=== PATIENT | male | born 1965 | race Caucasian/White ===

== ENCOUNTER 2018-04-04 22:48 | Inpatient (IN) ==
[2018-04-05 01:39] LABS: Baso # (Auto) 0.1 th/mm3 (0.0-0.2); Baso % (Auto) 0.7 % (0.0-2.0); Eos # (Auto) 0.6 th/mm3 (0.0-0.4); Eos % (Auto) 4.4 % (0.0-4.0); Hematocrit 50.9 % (39.0-51.0); Hemoglobin 17.5 gm/dL (13.0-17.0); Lymph # (Auto) 2.7 th/mm3 (1.0-4.8); Lymph % (Auto) 20.9 % (9.0-44.0); Mean Corpuscular HGB Conc 34.4 % (32.0-36.0); Mean Corpuscular Hemoglobin 35.6 pg (27.0-34.0); Mean Corpuscular Volume 103.4 fL (80.0-100.0); Mean Platelet Volume 8.5 fL (7.0-11.0); Mono # (Auto) 1.4 th/mm3 (0.0-0.9); Mono % (Auto) 10.6 % (0.0-8.0); Neut # (Auto) 8.1 th/mm3 (1.8-7.7); Neut % (Auto) 63.4 % (16.0-70.0); Platelet Count 191 th/mm3 (150-450); Red Blood Count 4.93 mil/mm3 (4.50-5.90); White Blood Count 12.8 th/mm3 (4.0-11.0)
[2018-04-05 01:49] LABS: Amphetamine Screen,Urine Neg (Neg); Barbiturate Screen,Urine Neg (Neg); Cannabinoid Screen,Urine Neg (Neg); Cocaine Screen,Urine Neg (Neg)
[2018-04-05 01:51] LABS: Opiate Screen,Urine Pos (Neg)
[2018-04-05 01:54] LABS: Alanine Aminotransferase 42 U/L (12-78); Albumin 3.6 g/dL (3.4-5.0); Anion Gap 11 meq/L (5-15); Aspartate Aminotransferase 26 U/L (15-37); Blood Urea Nitrogen 17 mg/dL (7-18); Calcium 8.4 mg/dL (8.5-10.1); Carbon Dioxide 29.3 meq/L (21.0-32.0); Chloride 103 meq/L (98-107); Glomerular Filtration Rate Greater Than 89 mL/min (>89); Glucose,Random 81 mg/dL (74-106); Potassium 3.8 meq/L (3.5-5.1); Sodium 143 meq/L (136-145)
[2018-04-05 02:04] LABS: Alkaline Phosphatase 86 U/L (45-117); Total Protein 7.1 g/dL (6.4-8.2)
--- NOTE | 2018-04-05 03:32 | ED ---
HPI General Chief Complaint: Psychiatric Symptoms Stated Complaint: Flaquito Adams Time Seen by Provider: 04/05/18 00:24 Source: patient Mode of arrival: ambulatory Limitations: no limitations History of Present Illness HPI Narrative: 52-year-old white male presents emergency department under Cespedes act by . Patient was brought in after leaving his [facility]. He had purchased a car and attempted to leave the state. He states that he was traveling to [place] where his mother and father live. Patient was deemed incompetent. The patient denies any suicidal homicidal ideation. He states that he was merely going back to visit his mother. He does not like the facility staying at now. He allegedly has had a history of a traumatic brain injury and chronic neck pain. Patient reports living in an [facility] due to financial reasons. Patient denies any toxic ingestions. He states that his chronic pain is no different than usual. He has not had any recent illnesses. Past medical history: Traumatic brain injury, chronic neck and back pain, depression, peripheral vascular disease, hypercholesterolemia, questionable seizure disorder Surgical history: Negative Social history: No alcohol. No drugs. Positive tobacco. Related Data Home Medications Medication Instructions Recorded Confirmed duloxetine [Cymbalta] 30 mg PO BID 04/04/18 04/04/18 gabapentin 300 mg PO TID 04/04/18 04/04/18 morphine 30 mg PO BID PRN MDD 60 04/04/18 04/04/18 simvastatin [Zocor] 20 mg PO DAILY 04/04/18 04/04/18 zolpidem [Ambien] 5 mg PO HS 04/04/18 04/04/18 Allergies Allergy/AdvReac Type Severity Reaction Status Date / Time No Known Allergies Allergy Verified 04/04/18 23:34 Review of Systems ROS: all other systems reviewed are negative [facility] Medical History Medical History History of herniated intervertebral disc (Acute) Hx of head injury (Acute) Hx of neck injury (Acute) Hypercholesteremia (Acute) Seizure (Acute) Surgical History Surgical History No history of previous surgery (Acute) Social History Social History Substance History: Past History Second Hand Smoke Exposure: Yes Smoking Status: Current every day smoker Tobacco Type: Cigarettes How Often Do You Have a Drink Containing Alcohol: Never Recent Travel in USA within the Last 8 Weeks: No Recent Out of Country Travel within the Last 8 Weeks: No Immunization History Tetanus Immunization: <5 Years Hx Influenza Vaccine This Season: Yes Exam Narrative Exam Narrative: GENERAL: Well-nourished, well-developed patient. SKIN: Warm and dry. HEAD: Normocephalic and atraumatic. EYES: No scleral icterus. No injection or drainage. ENT: No nasal drainage noted. Mucous membranes pink. Airway patent. NECK: Supple, trachea midline. Moves head freely without obvious discomfort. CARDIOVASCULAR: Regular rate and rhythm without murmurs, gallops, or rubs. RESPIRATORY: Breath sounds equal bilaterally. No accessory muscle use. GASTROINTESTINAL: Abdomen soft, non-tender, large abdominal pannus. EXTREMITIES: Patient has chronic venous stasis changes as well as peripheral vascular changes. Lower extremities are thickened and mottled. BACK: Nontender without obvious deformity. No CVA tenderness. NEURO: Patient is alert and oriented. no sensorimotor deficits. Nonfocal. Normal speech. PSYCH: No delusions. No auditory or visual hallucinations. Course Initial Documented Vital Signs Temperature 98.3 F 04/04/18 23:41 Pulse Rate 127 H 04/04/18 23:41 Respiratory Rate 17 04/04/18 23:41 Blood Pressure 126/64 04/04/18 23:41 Pulse Oximetry 96 04/04/18 23:41 Last Documented Vital Signs Temperature 98.3 F 04/04/18 23:41 Pulse Rate 124 H 04/05/18 07:46 Respiratory Rate 18 04/05/18 07:46 Blood Pressure 125/63 04/05/18 07:46 Pulse Oximetry 100 04/05/18 07:46 Medical Decision Making [facility] Narrative Medical decision making narrative: Routine laboratory testing for medical clearance. The patient has been medically cleared. Patient CARE assume by me Dr. Hinojosa at . This is a 52-year-old male who is brought under a Cespedes act last night, this morning's PA has rounded on him found him to be continued tachycardic and performed EKG and discuss with me. His EKG reviewed by me is heart rate of 121 and appears that it is probably 2-1 atrial flutter. Dose of Cardizem has been ordered. We will continue to monitor. Patient no response to first 25 mg bolus of Cardizem, additional boluses been ordered as well as a Cardizem drip. Atrial flutter confirmed on monitor as patient is been intermittently slowing but still maintaining heart rates in the high 120s. Discussed with Dr. Sanches for admission. Medical Screen Exam Complete: Yes Emergency Medical Condition: Yes Differential Diagnosis Differential Diagnosis: MDM: High Differential diagnoses: Schizophrenia, schizoaffective disorder, bipolar, anxiety, depression, adjustment reaction, mood disorder NOS, ODD, depressive disorder NOS, dementia, dementia with agitation, psychosis NOS, substance induced mood disorder, DMDD, Asperger syndrome, infection,electrolyte abnormality, malingering. Mental health screening discussed with the patient. Psychiatric screen ordered. Lab Data Result diagrams: 04/05/18 01:23 04/05/18 01:23 Lab Results 04/05/18 04/05/18 04/05/18 Range/Units 01:23 01:23 01:23 WBC 12.8 H (4.0-11.0) th/mm3 RBC 4.93 (4.50-5.90) mil/mm3 Hgb 17.5 H (13.0-17.0) gm/dL Hct 50.9 (39.0-51.0) % MCV 103.4 H (80.0-100.0) fL MCH 35.6 H (27.0-34.0) pg MCHC 34.4 (32.0-36.0) % RDW 14.0 (11.6-17.2) % Plt Count 191 (150-450) th/mm3 MPV 8.5 (7.0-11.0) fL Neut % (Auto) 63.4 (16.0-70.0) % Lymph % (Auto) 20.9 (9.0-44.0) % Harrison % (Auto) 10.6 H (0.0-8.0) % Eos % (Auto) 4.4 H (0.0-4.0) % Baso % (Auto) 0.7 (0.0-2.0) % Neut # (Auto) 8.1 H (1.8-7.7) th/mm3 Lymph # (Auto) 2.7 (1.0-4.8) th/mm3 Harrison # (Auto) 1.4 H (0.0-0.9) th/mm3 Eos # (Auto) 0.6 H (0.0-0.4) th/mm3 Baso # (Auto) 0.1 (0.0-0.2) th/mm3 WBC Differential . Differential Comment Auto diff final Sodium 143 (136-145) meq/L Potassium 3.8 (3.5-5.1) meq/L Chloride 103 (98-107) meq/L Carbon Dioxide 29.3 (21.0-32.0) meq/L Anion Gap 11 (5-15) meq/L BUN 17 (7-18) mg/dL Creatinine 0.82 (0.60-1.30) mg/dL Estimated GFR Greater than 89 (>89) mL/min Random Glucose 81 (74-106) mg/dL Calcium 8.4 L (8.5-10.1) mg/dL Total Bilirubin 0.4 (0.2-1.0) mg/dL AST 26 (15-37) U/L ALT 42 (12-78) U/L Alkaline Phosphatase 86 (45-117) U/L Troponin I Less than 0.02 L (0.02-0.05) ng/mL B-Natriuretic Peptide (0-100) pg/mL Total Protein 7.1 (6.4-8.2) g/dL Albumin 3.6 (3.4-5.0) g/dL TSH 4.560 H (0.358-3.740) uIU/mL Urine Opiates Screen Pos H (Neg) Ur Barbiturates Screen Neg (Neg) Ur Amphetamines Screen Neg (Neg) U Benzodiazepines Scrn Neg (Neg) Urine Cocaine Screen Neg (Neg) U Cannabinoids Screen Neg (Neg) Serum Alcohol Less than 3 (0-5) mg/dL 04/05/18 Range/Units 07:50 WBC (4.0-11.0) th/mm3 RBC (4.50-5.90) mil/mm3 Hgb (13.0-17.0) gm/dL Hct (39.0-51.0) % MCV (80.0-100.0) fL MCH (27.0-34.0) pg MCHC (32.0-36.0) % RDW (11.6-17.2) % Plt Count (150-450) th/mm3 MPV (7.0-11.0) fL Neut % (Auto) (16.0-70.0) % Lymph % (Auto) (9.0-44.0) % Harrison % (Auto) (0.0-8.0) % Eos % (Auto) (0.0-4.0) % Baso % (Auto) (0.0-2.0) % Neut # (Auto) (1.8-7.7) th/mm3 Lymph # (Auto) (1.0-4.8) th/mm3 Harrison # (Auto) (0.0-0.9) th/mm3 Eos # (Auto) (0.0-0.4) th/mm3 Baso # (Auto) (0.0-0.2) th/mm3 WBC Differential Differential Comment Sodium (136-145) meq/L Potassium (3.5-5.1) meq/L Chloride (98-107) meq/L Carbon Dioxide (21.0-32.0) meq/L Anion Gap (5-15) meq/L BUN (7-18) mg/dL Creatinine (0.60-1.30) mg/dL Estimated GFR (>89) mL/min Random Glucose (74-106) mg/dL Calcium (8.5-10.1) mg/dL Total Bilirubin (0.2-1.0) mg/dL AST (15-37) U/L ALT (12-78) U/L Alkaline Phosphatase (45-117) U/L Troponin I (0.02-0.05) ng/mL B-Natriuretic Peptide 28 (0-100) pg/mL Total Protein (6.4-8.2) g/dL Albumin (3.4-5.0) g/dL TSH (0.358-3.740) uIU/mL Urine Opiates Screen (Neg) Ur Barbiturates Screen (Neg) Ur Amphetamines Screen (Neg) U Benzodiazepines Scrn (Neg) Urine Cocaine Screen (Neg) U Cannabinoids Screen (Neg) Serum Alcohol (0-5) mg/dL Discharge Plan Physicians Team ED Provider: Telly Hinojosa Primary Care Provider: Primary Care Physici,[place] Rxs /Orders / Referrals /Forms Prescriptions: No Action morphine 30 mg Tablet 30 mg PO BID MDD 60 PRN (Reason: Acute Pain) RF: 0 simvastatin [Zocor] 20 mg Tablet 20 mg PO DAILY RF: 0 zolpidem [Ambien] 5 mg Tablet 5 mg PO HS RF: 0 gabapentin 100 mg Capsule 300 mg PO TID RF: 0 duloxetine [Cymbalta] 30 mg Capsule,Delayed Release(Dr/Ec) 30 mg PO BID RF: 0 Discharge Interventions Interventions: Vital Signs Last Done: 04/05/18 07:46 Status ED Status: Admitted Patient
[2018-04-05] MEDS ORDERED: Sod Chloride 0.9% Inj 1,000 ML IV.SIG SCH (06:30)
--- NOTE | 2018-04-05 10:53 | P.HPIM ---
History of Present Illness Service: [facility] Primary Care Physician: No Primary Care Physician Chief Complaint: Atrial flutter, Cespedes act History of Present Illness: Mr. Santos is a 52 yo M with PMH physiatric illness, atrial fibrillation, tobacco abuse, hyperlipidemia who presents to [place] ED via police under Cespedes Act. [ Per EMR review, patient found to be in likely 2-1 atrial flutter while in ED. He was started on Cardizem bolus and drip.] Per patient, he left his assisted living facility due to frustration with one of the other residents and [place] [address]. He does not report any current psychiatric concerns or suicidal ideation. Regarding patient' s atrial fibrillation/flutter, he reports being diagnosed with this previously and that he last saw a [employer] ~5 mo ago. He states he takes unknown medications for this; he has not taken anything for ~3 days since leaving his [facility]. Patient denies any symptoms at this time such as chest pain, shortness of breath , abdominal pain, abnormal urination, or abnormal bowel movements. He reports some fatigue. He also reports some chronic back pain. PMH: Hyperlipidemia, atrial fibrillation, hyperlipidemia, psychiatric disease SH: Prior alcoholism, sober for 16 years. Smoking 2 PPD. FH: Parents live in [place] Home meds: Pain- Neurontin TID, morphine ER-30 mg Lipid- Zocor Neuro/Psych- Tegretol 400mg AM/400mg PM, Cymbalta 30mg AM ASA Ambien at night ? atrial fibrillation medication *Call placed to [facility] to clarify home medications; did not receive call back at this time Inpatient Certification: I certify that the inpatient services were ordered in accordance with Medicare regulations governing the order. This includes certification that hospital inpatient services are reasonable and necessary and in the case of services not specified as inpatient-only under 42 CFR 419.22(n), that they are appropriately provided as inpatient services in accordance to with the 2-midnight benchmark under 43 CFR 412.3(e) Review of Systems All other systems reviewed negative except as stated in HPI Constitutional: Reports fatigue Eyes: Denies blurry vision, Denies dry eyes Ears, Nose, Mouth, and Throat: Denies nasal congestion, Denies sore throat Cardiovascular: Reports irregular heart rhythm, Denies chest pain, Denies shortness of breath with activity Respiratory: Denies change in phlegm color, Denies cough Genitourinary: Denies urinary frequency, Denies urinary incontinence Musculoskeletal: Reports back pain, Reports neck pain (chronic after accident) Skin/Breast: Denies change in skin color, Denies unusual bruising Neurologic: Denies abnormal speech, Denies confusion, Denies loss of vision, Denies tingling/numbness/burning sensations Psychiatric: Denies anxiety, Denies confusion Hematologic/Lymphatic: Denies easy bleeding, Denies easy bruising PMFSH - History History Provided By: Patient - Medical History Medical History: Medical History (Last Updated 04/05/18 @ 15:23 by Vicente Hall MD) Atrial arrhythmia Chronic back pain greater than 3 months duration History of herniated intervertebral disc Hx of head injury Hx of neck injury Hypercholesteremia Psychiatric diagnosis Seizure - Surgical History Surgical History: Surgical History (Last Reviewed 04/05/18 @ 03:31 by JUAN Tsang) No history of previous surgery - Tobacco History Second Hand Smoke Exposure: Yes Tobacco Use In Past 30 Days: Yes Smoking Status: Current every day smoker Tobacco Type: Cigarettes - Alcohol History How Often Do You Have a Drink Containing Alcohol: Never - Substance Use History Substance History: Past History - Substance Use Type Alcohol Status: Sustained Remission Comment: SOBER FOR THE PAST 16 YEARS PER PATIENT - Travel History Recent Travel in the [place] Within the Last 8 Weeks: No Recent Travel Out of the Country Within the Last 8 Weeks: No - Immunization History Tetanus Immunization: <5 Years Hx Influenza Vaccine This Season: Yes Medications and Allergies Active Medications: Active Medications Diltiazem HCl (Cardizem Inj) 25 mg IV.PUSH ONCE PRN PRN Reason: Inadaquate response Last Admin: 04/05/18 10:34 Dose: 25 mg Sodium Chloride (Ns Inj) 1,000 mls @ 0 mls/hr IV.SIG BOLUS JIN Last Infusion: 04/05/18 07:28 Dose: Infused Diltiazem HCl 125 mg/ Sodium (Chloride) 125 mls @ 5 mls/hr IV.CONT TITRATE PRN ; Protocol PRN Reason: Per Protocol Allergies Allergy/AdvReac Type Severity Reaction Status Date / Time No Known Allergies Allergy Verified 04/04/18 23:34 Home Medications Medication Instructions Recorded Confirmed Type duloxetine [Cymbalta] 30 mg PO BID 04/04/18 04/04/18 History gabapentin 300 mg PO TID 04/04/18 04/04/18 History morphine 30 mg PO BID PRN MDD 60 04/04/18 04/04/18 History simvastatin [Zocor] 20 mg PO DAILY 04/04/18 04/04/18 History zolpidem [Ambien] 5 mg PO HS 04/04/18 04/04/18 History B Complex 04/05/18 History ammonium lactate 1 applic TOPICAL DAILY PRN 04/05/18 04/05/18 History aripiprazole 10 mg PO DAILY 04/05/18 04/05/18 History ascorbic acid (vitamin C) [Vitamin 500 mg PO DAILY 04/05/18 04/05/18 History C] carbamazepine 300 mg PO BID 04/05/18 04/05/18 History ceramides 1,3,6-11 [CeraVe] 04/05/18 History docusate sodium 100 mg PO BID PRN 04/05/18 04/05/18 History duloxetine 60 mg PO DAILY 04/05/18 04/05/18 History furosemide 40 mg PO DAILY 04/05/18 04/05/18 History furosemide 80 mg PO DAILY 04/05/18 04/05/18 History gabapentin 100 mg PO TID 04/05/18 04/05/18 History guaifenesin [Mucinex] 600 mg PO Q12H PRN 04/05/18 04/05/18 History haloperidol 5 mg PO Q4HR PRN MDD 2 04/05/18 04/05/18 History ibuprofen 600 mg PO Q6HR PRN 04/05/18 04/05/18 History ketoconazole 1 applic TOPICAL DAILY 04/05/18 04/05/18 History lorazepam 1 mg PO BID 04/05/18 04/05/18 History lorazepam 1 mg PO Q4HR PRN MDD 2 04/05/18 04/05/18 History lurasidone [Latuda] 80 mg PO ,04/05/18 04/05/18 History melatonin 10 mg PO HS 04/05/18 04/05/18 History morphine 20 mg PO Q12H 04/05/18 04/05/18 History [id number]-pzebohuv-gwpseh 1 tab PO DAILY 04/05/18 04/05/18 History [Cerovite Senior] naproxen 500 mg PO BID 04/05/18 04/05/18 History nebivolol [Bystolic] 10 mg PO DAILY 04/05/18 04/05/18 History omega 3-xzu-fvz-fish oil [Fish Oil] 04/05/18 History potassium chloride 10 meq PO DAILY 04/05/18 04/05/18 History potassium chloride 20 meq PO DAILY 04/05/18 04/05/18 History quetiapine 300 mg PO QPM 04/05/18 04/05/18 History simvastatin 40 mg PO QPM 04/05/18 04/05/18 History tramadol 50 mg PO Q6H PRN 04/05/18 04/05/18 History vitamin E 400 unit PO DAILY 04/05/18 04/05/18 History zolpidem 10 mg PO HS 04/05/18 04/05/18 History Exam Vital signs: Vital Signs 04/04/18 23:41 04/05/18 02:27 04/05/18 05:13 Temperature 98.3 F Pulse Rate 127 H 66 Respiratory Rate 17 17 18 Blood Pressure 126/64 117/66 Pulse Oximetry 96 96 04/05/18 06:15 04/05/18 07:00 04/05/18 07:46 Temperature Pulse Rate 126 H 120 H 124 H Respiratory Rate 24 20 18 Blood Pressure 131/73 153/69 H 125/63 Pulse Oximetry 95 95 100 04/05/18 10:00 Temperature Pulse Rate 131 H Respiratory Rate 25 H Blood Pressure 132/82 Pulse Oximetry 96 Intake & Output 04/04/18 04/05/18 04/05/18 18:59 06:59 18:59 Intake Total 1000 / 1000 Balance 1000 / 1000 Intake: IV 1000 / 1000 NS Inj 1,000 ML @ Wide Open IV. 1000 / 1000 SIG BOLUS JIN Rx#:[id number] Narrative: General: No acute distress Skin: No visible lesions CV: tachycardic; no audible murmurs. Grossly normal perfusion Resp: CTAB; normal rate Abdomen: Obese. Nontender to palpation. Normal bowel sounds MSK: Grossly normal ROM and strength Neuro: Grossly normal CN. Grossly normal peripheral motor/sensory function. Patient seemingly alert/oriented Results - Labs CBC & Chem 7: 04/05/18 01:23 04/05/18 01:23 Labs: Short CBC 04/05/18 Range/Units 01:23 WBC 12.8 H (4.0-11.0) th/mm3 Hgb 17.5 H (13.0-17.0) gm/dL Hct 50.9 (39.0-51.0) % Plt Count 191 (150-450) th/mm3 BMP 04/05/18 01:23 Sodium 143 Potassium 3.8 Chloride 103 Carbon Dioxide 29.3 BUN 17 Creatinine 0.82 Calcium 8.4 L Cardiac Enzymes 04/05/18 Range/Units 01:23 Troponin I Less than 0.02 L (0.02-0.05) ng/mL Liver Function 04/05/18 Range/Units 01:23 Total Bilirubin 0.4 (0.2-1.0) mg/dL AST 26 (15-37) U/L ALT 42 (12-78) U/L Alkaline Phosphatase 86 (45-117) U/L Albumin 3.6 (3.4-5.0) g/dL Caprini VTE Risk Assessment Caprini VTE Risk Assessment: Moderate/High Risk (score >= 2) Caprini Risk Assessment Model: Point Value = 1 Point Value = 2 Point Value = 3 Point Value = 5 Age 41-60 Minor surgery BMI > 25 kg/m2 Swollen legs Varicose veins or History of unexplained or recurrent spontaneous Oral contraceptives or hormone replacement Sepsis (< 1 month) Serious lung disease, including pneumonia (< 1 month) Abnormal pulmonary function Acute myocardial infarction Congestive heart failure (< 1 month) History of inflammatory bowel disease Medical patient at bed rest Age 61-74 Arthroscopic surgery Major open surgery (> 45 min) Laparoscopic surgery (> 45 min) Malignancy Confined to bed (> 72 hours) Immobilizing plaster cast Central venous access Age >= 75 History of VTE Family history of VTE Factor V Leiden Prothrombin [id number] Lupus anticoagulant Anticardiolipin antibodies Elevated serum homocysteine Heparin-induced thrombocytopenia Other congenital or acquired thrombophilia Stroke (< 1 month) Elective arthroplasty Hip, pelvis, or leg fracture Acute spinal cord injury (< 1 month) Prophylaxis Regimen: Total Risk Factor Score Risk Level Prophylaxis Regimen 0-1 Low Early ambulation 2 Moderate Order ONE of the following: *Sequential Compression Device (SCD) *Heparin 5000 units SQ BID 3-4 Higher Order ONE of the following medications: *Heparin 5000 units SQ TID *Enoxaparin/Lovenox 40 mg SQ daily (WT < 150 kg, CrCl > 30 mL/min) *Enoxaparin/Lovenox 30 mg SQ daily (WT < 150 kg, CrCl > 10-29 mL/min) *Enoxaparin/Lovenox 30 mg SQ BID (WT < 150 kg, CrCl > 30 mL/min) AND/OR *Sequential Compression Device (SCD) 5 or more Highest Order ONE of the following medications: *Heparin 5000 units SQ TID (Preferred with Epidurals) *Enoxaparin/Lovenox 40 mg SQ daily (WT < 150 kg, CrCl > 30 mL/min) *Enoxaparin/Lovenox 30 mg SQ daily (WT < 150 kg, CrCl > 10-29 mL/min) *Enoxaparin/Lovenox 30 mg SQ BID (WT < 150 kg, CrCl > 30 mL/min) AND *Sequential Compression Device (SCD) Assessment and Plan - Plan Mr. Santos is a 52 yo M with H physiatric illness, atrial fibrillation, tobacco abuse, hyperlipidemia who presented to [place] ED via police under Cespedes Act and found to have atrial arrhythmia suggestive of atrial flutter Atrial arrhythmia Impression: Suspect likely atrial flutter. Patient reports prior Afib and Cardiology evaluation months prior; has not recently been medicated since leaving his [facility] Labs: troponin negative. TSH <5, T4 normal. -Rate control -Continue rate titration with Cardizem drip started in ED -Continue telemetry -Cardiology consulted -Will check echocardiogram -Will give ASA -Will attempt to acquire home medications from [facility] Psychiatric illness/ Cespedes act Impression: Patient seemingly normal mental status and seems aware of situation. Placed under Cespedes act by police after leaving [facility] several days prior -Will await Psych eval -Will continue Cymbalta -Will continue Tegretol -Will give Ativan PRN for anxiety Chronic pain -Will continue home Neurontin, Oramorph while inpatient -E-forcse attempted -Will consult PT while inpatient Tobacco abuse -Nicotine patch offered; patient refused DVT PPX -Lovenox 40mg daily Code Status: Full code
[2018-04-05] MEDS: dilTIAZem Inj 125 MG in Sodium Chlor 0.9% Inj 100 ML IV.CONT PRN ×2 (10:56→19:28)
[2018-04-05] MEDS ORDERED: Acetaminophen 325 MG Tablet PO PRN (11:19)
--- NOTE | 2018-04-05 13:49 | XR ---
EXAM DATE: 04/05/2018 1:34 PM EDT AGE/SEX: 52 years / Male INDICATIONS: . Chest pain. CLINICAL DATA: This is the patient's initial encounter. Patient reports that signs and symptoms have been present for 1 day and indicates a pain score of 4/10. MEDICAL/SURGICAL HISTORY: Seizures. Smoker. A-fib. None. COMPARISON: No prior exams available for comparison. FINDINGS: Linear scarring or atelectasis in the lingula. Osseous structures are intact. Cardiomegaly. Right elvira g clear. CONCLUSION: Lingular atelectasis versus scarring. Electronically signed by: Dimitri Riggs MD 04/05/2018 1:48 PM EDT
[2018-04-05] MEDS: Gabapentin 300 MG Capsule PO SCH ×2 (14:07→19:36)
[2018-04-05] MEDS: Enoxaparin Inj 40 MG/0.4 ML Syringe SQ SCH (14:07)
[2018-04-05] MEDS ORDERED: LORazepam 1 MG Tablet PO PRN (15:50)
--- NOTE | 2018-04-05 16:07 | ECG ---
Date Performed: 04/05/2018 Time Performed: 07:21:30 PTAGE: 52 years EKG: SUPRAVENTRICULAR TACHYCARDIA WITH VENTRICULAR RATE OF 121, THIS IS MOST LIKELY ATRIAL FLUTT ER WITH 2:1 AV CONDUCTION VERSUS SOME OTHER ECTOPIC SUPRAVENTRICULAR TACHYCARDIA. LOW LIMB LEAD VOLTA GE INDETERMINATE AXIS CLINICAL CORRELATION AND FOLLOW UP TRACINGS RECOMMENDED. ABNORMAL ECG NO PREVIOUS TRACING DOCTOR: Michele Cox Interpretating Date/Time 04/05/2018 16:21:17
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
--- NOTE | 2018-04-05 18:45 | MB ---
cc: Sly Felix DO DATE: 04/05/2018 REASON FOR CONSULTATION: Atrial flutter. HISTORY OF PRESENT ILLNESS: Gregory Santos is a 52-year-old male who is in an assisted living facility in [place]. He left due to frustration with another resident and apparently bought a car and drove across the [place]. [place] was [place] [address]. He was brought in as a Cespedes act. On arrival, he was found to be in atrial flutter with a rapid ventricular response and started on a Cardizem drip. The patient has a log brander back in [place], who he saw 4-5 months ago. He has a known history of atrial fibrillation. Since he left the assisted living facility around 3 days ago, he has not taken any of his medications. In seeing him, he is hemodynamically stable without chest pain or shortness of breath. PAST MEDICAL HISTORY: 1. Atrial fibrillation. 2. Herniated intervertebral disk. 3. History of head and neck injury. 4. Hyperlipidemia. 5. Seizures. PAST SURGICAL HISTORY: Dictation Ends Here. Sly Felix DO VGP/rm , 03:05 PM , 03:10 PM
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
[2018-04-05] MEDS: Haloperidol Lactate Oral Conc 10 MG/5 ML UDC PO SCH (20:50)
[2018-04-05] MEDS: carBAMazepine 200 MG Tablet PO SCH (20:54)
[2018-04-05] MEDS ORDERED: Zolpidem Tartrate 5 MG Tablet PO SCH (21:00)
[2018-04-05] MEDS: Haloperidol Inj 5 MG/ML Ampul IM SCH (22:17)
[2018-04-05] MEDS: Senna/Docusate Sodium 8.6/50 MG Tablet PO SCH (22:17)
[2018-04-06 04:19] LABS: Baso % (Auto) 0.4 % (0.0-2.0); Eos # (Auto) 0.6 th/mm3 (0.0-0.4); Hematocrit 50.3 % (39.0-51.0); Hemoglobin 17.4 gm/dL (13.0-17.0); Lymph # (Auto) 2.2 th/mm3 (1.0-4.8); Lymph % (Auto) 19.1 % (9.0-44.0); Mean Corpuscular HGB Conc 34.6 % (32.0-36.0); Mean Corpuscular Hemoglobin 35.7 pg (27.0-34.0); Mean Corpuscular Volume 103.1 fL (80.0-100.0); Mean Platelet Volume 8.1 fL (7.0-11.0); Mono # (Auto) 1.3 th/mm3 (0.0-0.9); Mono % (Auto) 11.6 % (0.0-8.0); Neut # (Auto) 7.2 th/mm3 (1.8-7.7); Neut % (Auto) 63.9 % (16.0-70.0); Platelet Count 179 th/mm3 (150-450); Red Blood Count 4.88 mil/mm3 (4.50-5.90); Red Cell Distribution Width 14.4 % (11.6-17.2); White Blood Count 11.3 th/mm3 (4.0-11.0)
[2018-04-06 04:39] LABS: Anion Gap 5 meq/L (5-15); Blood Urea Nitrogen 10 mg/dL (7-18); Calcium 8.3 mg/dL (8.5-10.1); Carbon Dioxide 29.1 meq/L (21.0-32.0); Chloride 107 meq/L (98-107); Glomerular Filtration Rate Greater Than 89 mL/min (>89); Glucose,Random 94 mg/dL (74-106); Potassium 3.7 meq/L (3.5-5.1); Sodium 141 meq/L (136-145)
[2018-04-06 04:40] LABS: Cholesterol 198 mg/dL (120-200); Triglycerides 421 mg/dL (42-150)
[2018-04-06 04:42] LABS: Chol/HDL Ratio 5.54 Ratio; HDL Cholesterol 35.7 mg/dL (40.0-60.0)
[2018-04-06] MEDS: carBAMazepine 200 MG Tablet PO SCH ×2 (09:23→20:33)
[2018-04-06] MEDS: Senna/Docusate Sodium 8.6/50 MG Tablet PO SCH (09:23)
[2018-04-06] MEDS: Haloperidol Lactate Oral Conc 10 MG/5 ML UDC PO SCH ×2 (09:24→20:32)
[2018-04-06] MEDS: Gabapentin 300 MG Capsule PO SCH ×3 (09:24→17:52)
[2018-04-06] MEDS: Haloperidol Inj 5 MG/ML Ampul IM SCH ×2 (09:25→20:33)
--- NOTE | 2018-04-06 11:23 | P.PN ---
Subjective Interval history: Follow-up atrial flutter with RVR/acute psychotic mood disorder April 06, 2018-patient seen and examined, currently on Cardizem drip. Alert and oriented 3. Denies any chest pain or shortness of breath. Physical Exam Vital signs: Vital Signs 04/05/18 12:00 04/05/18 13:00 04/05/18 14:00 Temperature 97.6 F Pulse Rate 114 H 90 120 H Respiratory Rate 18 Blood Pressure 152/87 H Pulse Oximetry 96 04/05/18 15:00 04/05/18 17:00 04/05/18 19:00 Temperature Pulse Rate 128 H 130 H 110 H Respiratory Rate Blood Pressure Pulse Oximetry 04/05/18 20:00 04/05/18 21:00 04/05/18 22:00 Temperature 98.4 F Pulse Rate 125 H 118 H 94 H Respiratory Rate 20 Blood Pressure 160/91 H Pulse Oximetry 96 04/05/18 23:00 04/06/18 00:00 04/06/18 01:00 Temperature Pulse Rate 141 H 78 86 Respiratory Rate 20 Blood Pressure 138/77 Pulse Oximetry 95 04/06/18 02:00 04/06/18 03:00 04/06/18 04:00 Temperature Pulse Rate 84 114 H 130 H Respiratory Rate 20 Blood Pressure 115/80 Pulse Oximetry 94 L 04/06/18 05:00 04/06/18 06:00 04/06/18 07:00 Temperature Pulse Rate 88 86 131 H Respiratory Rate Blood Pressure Pulse Oximetry 04/06/18 08:00 04/06/18 09:00 04/06/18 09:03 Temperature 97.9 F Pulse Rate 131 H 116 H Respiratory Rate 20 Blood Pressure 141/67 H Pulse Oximetry 98 97 04/06/18 10:00 Temperature Pulse Rate 121 H Respiratory Rate Blood Pressure Pulse Oximetry Intake & Output 04/05/18 04/06/18 04/06/18 18:59 06:59 18:59 Intake Total 1000 / 1000 555 / 555 Output Total 750 / 750 Balance 1000 / 1000 -195 / -195 Weight 139.5 kg Intake: IV 1000 / 1000 75 / 75 Cardizem Inj 125 MG In NS Inj 75 / 75 100 ML @ 5 MG/HR 5 mls/hr IV. CONT TITRATE PRN Rx#:[id number] NS Inj 1,000 ML @ Wide Open IV. 1000 / 1000 SIG BOLUS JIN Rx#:[id number] Oral 480 / 480 Output: Urine 750 / 750 Other: Date of Last Bowel Movement 04/05/18 04/06/18 # Bowel Movements 1 Weight On Admission 139.5 kg Narrative: GENERAL: NAD SKIN: Warm and dry. HEAD: Normocephalic. EYES: No scleral icterus. No injection or drainage. NECK: Supple, trachea midline. No JVD or lymphadenopathy. CARDIOVASCULAR: Irregular regular rate and rhythm without murmurs, gallops, or rubs. RESPIRATORY: Breath sounds equal bilaterally. No accessory muscle use. GASTROINTESTINAL: Abdomen soft, non-tender, nondistended. MUSCULOSKELETAL: No cyanosis, or edema. BACK: Nontender without obvious deformity. No CVA tenderness. Results - Labs CBC & Chem 7: 04/06/18 03:52 04/06/18 03:52 Laboratory Results - last 24 hr 04/05/18 04/06/18 04/06/18 01:23 03:52 03:52 WBC 11.3 H RBC 4.88 Hgb 17.4 H Hct 50.3 MCV 103.1 H MCH 35.7 H MCHC 34.6 RDW 14.4 Plt Count 179 MPV 8.1 Neut % (Auto) 63.9 Lymph % (Auto) 19.1 [place] % (Auto) 11.6 H Eos % (Auto) 5.0 H Baso % (Auto) 0.4 Neut # (Auto) 7.2 Lymph # (Auto) 2.2 [place] # (Auto) 1.3 H Eos # (Auto) 0.6 H Baso # (Auto) 0.0 WBC Differential . Differential Comment Auto diff final Sodium 141 Potassium 3.7 Chloride 107 Carbon Dioxide 29.1 Anion Gap 5 BUN 10 Creatinine 0.62 Estimated GFR Greater than 89 Random Glucose 94 Calcium 8.3 L Triglycerides 421 H Cholesterol 198 LDL Cholesterol, Calc HDL Cholesterol 35.7 L Cholesterol/HDL Ratio 5.54 Thyroxine (T4) 6.8 - Imaging Impressions Chest X-Ray 04/05/18 00:00 CONCLUSION: Lingular atelectasis versus scarring. Assessment and Plan - Plan 52-year-old man with Atrial flutter with RVR History of A. fib Currently on Cardizem drip Continue with aspirin 2D echo pending Appreciate input from cardiology Tobacco abuse Tobacco counseling cessation provided Mood/psychotic disorder Currently Rubina acted Appreciate input from psychiatry Chronic pain continue home Neurontin, Oramorph while inpatient PT to treat and eval DVT PPX -Lovenox 40mg daily
--- NOTE | 2018-04-06 11:44 | P.PNCA ---
Subjective Interval history: Aflutter with RVR most of the night Did have one long pause, asymptomatic Currently off the Cardizem drip Physical Exam Vital signs: Vital Signs 04/05/18 12:00 04/05/18 13:00 04/05/18 14:00 Temperature 97.6 F Pulse Rate 114 H 90 120 H Respiratory Rate 18 Blood Pressure 152/87 H Pulse Oximetry 96 04/05/18 15:00 04/05/18 17:00 04/05/18 19:00 Temperature Pulse Rate 128 H 130 H 110 H Respiratory Rate Blood Pressure Pulse Oximetry 04/05/18 20:00 04/05/18 21:00 04/05/18 22:00 Temperature 98.4 F Pulse Rate 125 H 118 H 94 H Respiratory Rate 20 Blood Pressure 160/91 H Pulse Oximetry 96 04/05/18 23:00 04/06/18 00:00 04/06/18 01:00 Temperature Pulse Rate 141 H 78 86 Respiratory Rate 20 Blood Pressure 138/77 Pulse Oximetry 95 04/06/18 02:00 04/06/18 03:00 04/06/18 04:00 Temperature Pulse Rate 84 114 H 130 H Respiratory Rate 20 Blood Pressure 115/80 Pulse Oximetry 94 L 04/06/18 05:00 04/06/18 06:00 04/06/18 07:00 Temperature Pulse Rate 88 86 131 H Respiratory Rate Blood Pressure Pulse Oximetry 04/06/18 08:00 04/06/18 09:00 04/06/18 09:03 Temperature 97.9 F Pulse Rate 131 H 116 H Respiratory Rate 20 Blood Pressure 141/67 H Pulse Oximetry 98 97 04/06/18 10:00 04/06/18 11:00 Temperature Pulse Rate 121 H 138 H Respiratory Rate Blood Pressure Pulse Oximetry Intake & Output 04/05/18 04/06/18 04/06/18 18:59 06:59 18:59 Intake Total 1000 / 1000 555 / 555 Output Total 750 / 750 Balance 1000 / 1000 -195 / -195 Weight 139.5 kg Intake: IV 1000 / 1000 75 / 75 Cardizem Inj 125 MG In NS Inj 75 / 75 100 ML @ 5 MG/HR 5 mls/hr IV. CONT TITRATE PRN Rx#:[id number] NS Inj 1,000 ML @ Wide Open IV. 1000 / 1000 SIG BOLUS JIN Rx#:[id number] Oral 480 / 480 Output: Urine 750 / 750 Other: Date of Last Bowel Movement 04/05/18 04/06/18 # Bowel Movements 1 Weight On Admission 139.5 kg Narrative: GENERAL: NAD SKIN: Warm and dry. HEAD: Normocephalic. EYES: No scleral icterus. No injection or drainage. NECK: Supple, trachea midline. No JVD or lymphadenopathy. CARDIOVASCULAR: Irregular regular rate and rhythm without murmurs, gallops, or rubs. RESPIRATORY: Breath sounds equal bilaterally. No accessory muscle use. GASTROINTESTINAL: Abdomen soft, non-tender, nondistended. MUSCULOSKELETAL: No cyanosis, or edema. BACK: Nontender without obvious deformity. No CVA tenderness. Assessment and Plan - Assessment (1) Atrial flutter with rapid ventricular response Code(s): I48.92 - Unspecified atrial flutter Status: Acute (2) TBI (traumatic brain injury) Code(s): S06.9X9A - Unspecified intracranial injury with loss of consciousness of unspecified duration, initial encounter Status: Acute - Plan 1) Aflutter CHADSVASc = 0, con't on ASA 81mg daily Did have a long pause overnight on the Cardizem drip Will attempt to start Cardizem PO and see how he does May need BETINA with CV, but would need to take anti-coagulation for 4-6 weeks which might not be the best idea Would attempt to avoid PPM unless absolutely necessary 2) Cespedes Act 3) 2D echo pending
[2018-04-06] MEDS: Enoxaparin Inj 40 MG/0.4 ML Syringe SQ SCH (14:02)
[2018-04-06] MEDS: Morphine Sulfate 30 MG IR Tablet PO PRN (14:05)
[2018-04-07] MEDS: Gabapentin 300 MG Capsule PO SCH ×3 (08:12→17:25)
[2018-04-07] MEDS: carBAMazepine 200 MG Tablet PO SCH ×2 (08:12→21:42)
[2018-04-07] MEDS: Haloperidol Lactate Oral Conc 10 MG/5 ML UDC PO SCH ×2 (08:13→21:42)
[2018-04-07] MEDS: Haloperidol Inj 5 MG/ML Ampul IM SCH ×2 (08:13→21:42)
[2018-04-07] MEDS: Morphine Sulfate 30 MG IR Tablet PO PRN (08:16)
--- NOTE | 2018-04-07 10:47 | P.PN ---
Subjective Interval history: Follow-up atrial flutter with RVR/acute psychotic mood disorder April 06, 2018-patient seen and examined, currently on Cardizem drip. Alert and oriented 3. Denies any chest pain or shortness of breath. April 15, 2018-patient seen and examined, still in RVR, denies any shortness of breath or chest pain. Physical Exam Vital signs: Vital Signs 04/06/18 11:00 04/06/18 12:00 04/06/18 13:00 Temperature 98.0 F Pulse Rate 138 H 131 H 107 H Respiratory Rate 20 Blood Pressure 131/79 Pulse Oximetry 94 L 04/06/18 14:00 04/06/18 15:00 04/06/18 16:00 Temperature 98.0 F Pulse Rate 102 H 131 H 125 H Respiratory Rate 20 Blood Pressure 132/59 L Pulse Oximetry 94 L 04/06/18 17:00 04/06/18 18:00 04/06/18 19:00 Temperature Pulse Rate 132 H 116 H 98 H Respiratory Rate Blood Pressure Pulse Oximetry 04/06/18 20:00 04/06/18 21:00 04/06/18 22:00 Temperature 98.7 F Pulse Rate 134 H 92 H 92 H Respiratory Rate 18 Blood Pressure 145/105 H Pulse Oximetry 100 04/06/18 23:00 04/07/18 00:00 04/07/18 01:00 Temperature 98.1 F Pulse Rate 90 88 102 H Respiratory Rate 18 Blood Pressure 142/77 H Pulse Oximetry 99 04/07/18 02:00 04/07/18 03:00 04/07/18 04:00 Temperature 97.9 F Pulse Rate 105 H 114 H 113 H Respiratory Rate 18 Blood Pressure 120/71 Pulse Oximetry 100 04/07/18 05:00 04/07/18 06:00 04/07/18 07:00 Temperature Pulse Rate 114 H 116 H 107 H Respiratory Rate Blood Pressure Pulse Oximetry 04/07/18 08:00 04/07/18 09:00 04/07/18 10:00 Temperature 97.9 F Pulse Rate 126 H 130 H 116 H Respiratory Rate 20 Blood Pressure 137/92 H Pulse Oximetry 99 Intake & Output 04/06/18 04/07/18 04/07/18 18:59 06:59 18:59 Intake Total 640 / 640 480 / 480 Output Total 650 / 650 200 / 200 Balance -10 / -10 280 / 280 Weight 139 kg Intake: Oral 640 / 640 480 / 480 Output: Urine 650 / 650 200 / 200 Other: # Voids 2 3 Date of Last Bowel Movement 04/06/18 04/07/18 04/07/18 # Bowel Movements 1 Narrative: GENERAL: NAD SKIN: Warm and dry.+rash to bilateral armpits HEAD: Normocephalic. EYES: No scleral icterus. No injection or drainage. NECK: Supple, trachea midline. No JVD or lymphadenopathy. CARDIOVASCULAR: Irregular regular rate and rhythm without murmurs, gallops, or rubs. RESPIRATORY: Breath sounds equal bilaterally. No accessory muscle use. GASTROINTESTINAL: Abdomen soft, non-tender, nondistended. MUSCULOSKELETAL: No cyanosis, or edema. BACK: Nontender without obvious deformity. No CVA tenderness. Results - Labs CBC & Chem 7: 04/06/18 03:52 04/06/18 03:52 Assessment and Plan - Plan 52-year-old man with Atrial flutter with RVR History of A. fib Currently on Cardizem drip; Bystolic on hold Continue with aspirin 2D echo pending Appreciate input from cardiology Tobacco abuse Tobacco counseling cessation provided Mood/psychotic disorder Currently Rubina mathews Appreciate input from psychiatry Resume Abilify Chronic pain continue home Neurontin, Oramorph while inpatient PT to treat and eval History of CHF Resume Lasix DVT PPX -Lovenox 40mg daily
--- NOTE | 2018-04-07 11:04 | ECHRPT ---
Indication: ATRIAL FIB CONCLUSIONS The left ventricular systolic function is hyperdynamic with an estimated ejection fraction in the ra nge of 65- 70%. Normal left ventricular size. Moderate concentric left ventricular hypertrophy. No regional wall motion abnormalities are present. Aortic valve sclerosis is present. BP: / HR: Rhythm: Atrial fibrillation MEASUREMENTS (Male / Female) Normal Values Technical Quality:Fair 2D ECHO LV Diastolic Diameter PLAX 4.7 cm 4.2 - 5.9 / 3.9 - 5.3 cm LV Systolic Diameter PLAX 3.2 cm IVS Diastolic Thickness 1.5 cm 0.6 - 1.0 / 0.6 - 0.9 cm LVPW Diastolic Thickness 1.6 cm 0.6 - 1.0 / 0.6 - 0.9 cm LV Relative Wall Thickness 0.7 LVOT Diameter 1.9 cm M-MODE Aortic Root Diameter MM 2.3 cm LA Systolic Diameter MM 3.6 cm LA Ao Ratio MM 1.6 AV Cusp Separation MM 2.0 cm DOPPLER AV Peak Velocity 124.0 cm/s AV Peak Gradient 6.2 mmHg LVOT Peak Velocity 97.2 cm/s LVOT Peak Gradient 3.8 mmHg AV Area Cont Eq pk 2.2 cm MV Area PHT 5.4 cm LV E' Lateral Velocity 10.4 cm/s LV E' Septal Velocity 9.5 cm/s PV Peak Velocity 80.1 cm/s PV Peak Gradient 2.6 mmHg FINDINGS LEFT VENTRICLE The left ventricular systolic function is hyperdynamic with an estimated ejection fraction in the ra nge of 65- 70%. Normal left ventricular size. Moderate concentric left ventricular hypertrophy. No regional wall motion abnormalities are present. RIGHT VENTRICLE Normal right ventricular size and systolic function. LEFT ATRIUM The left atrial size is normal. RIGHT ATRIUM The right atrial size is normal. ATRIAL SEPTUM Normal atrial septal thickness without atrial level shunting by limited color doppler interrogation. AORTA The aortic root and proximal ascending aorta are normal in size on limited imaging. MITRAL VALVE Structurally normal mitral valve. No mitral valve stenosis or regurgitation. AORTIC VALVE Trileaflet aortic valve. Aortic valve sclerosis is present. TRICUSPID VALVE Structurally normal tricuspid valve. No tricuspid valve stenosis or regurgitation. PULMONARY VALVE The pulmonary valve is not well visualized. VESSELS The inferior vena cava is normal in size. PERICARDIUM No pericardial effusion. Kong Wu MD, FACC (Electronically Signed) Final Date:07 April 2018 11:03
[2018-04-07] MEDS ORDERED: carBAMazepine 200 MG Tablet PO SCH (11:30)
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
[2018-04-07] MEDS: Enoxaparin Inj 40 MG/0.4 ML Syringe SQ SCH (13:22)
--- NOTE | 2018-04-07 13:22 | P.PNPSY ---
Subjective Remarks: I have seen this patient today for psychiatric reevaluation. EMR reviewed. The case was discussed with Gaurav, porter sample case at residential facility. Case also discussed with nursing charge. On my psychiatric evaluation the patient is calm, cooperative and pleasant. The patient reports that he is having a procedure this afternoon to avoid his A. fib. The patient reports good mood, denies anxiety, denies anhedonia, denies hopelessness, denies helplessness, he denies suicidal and was ideation, denies visual and auditory hallucinations. The patient is concrete, but logical and coherent. Compliant with his medications, no significant side effects. Oriented 3. Mental Status Examination Appearance: Appropriate Consciousness: Alert Orientation: x4 Motor Activity: Normal gait Speech: Pressured, Rapid, Stuttering Language: Perseveration Fund of Knowledge: Poor Attention and Concentration: Easily distracted Memory: Impaired Mood: Appropriate Affect: Irritable Thought Process & Associations: Intact Thought Content: Appropriate, Obsessions Hallucination Type: None Delusion Type: None Suicidal Ideation: No Suicidal Plan: No Suicidal Intention: No Homicidal Ideation: No Homicidal Plan: No Homicidal Intention: No Insight: Fair Judgment: Impulsive Assessment and Plan - Assessment (1) TBI (traumatic brain injury) Code(s): S06.9X9A - Unspecified intracranial injury with loss of consciousness of unspecified duration, initial encounter Status: Acute - Plan Plan: Patient mentation seems to be improved since he was seen last time by Dr. Bardales. He seems to be at baseline, this information was confirmed by porter sample case. However, there is a patient with was no mood swings, he has been kind of disorganized during this hospitalization, requesting to be discharged AMA. For this reason I am going to keep the Cespedes act in place and I will reevaluate the case once the ablation is done. Continue current psychotropic regimen. Justification for Continued Inpatient Stay: No admission in psychiatry is indicated at the moment. Request Healthcare Surrogate/Guardian Advocate?: Yes
[2018-04-07] MEDS: ARIPiprazole 10 MG Tablet PO SCH (14:00)
--- NOTE | 2018-04-07 17:49 | P.PNCA ---
Subjective Interval history: No events overnight Multiple pauses overnight Most likely due to meds with sleep apnea, but the other side is that can't increase meds Physical Exam Vital signs: Vital Signs 04/06/18 18:00 04/06/18 19:00 04/06/18 20:00 Temperature 98.7 F Pulse Rate 116 H 98 H 134 H Respiratory Rate 18 Blood Pressure 145/105 H Pulse Oximetry 100 04/06/18 21:00 04/06/18 22:00 04/06/18 23:00 Temperature Pulse Rate 92 H 92 H 90 Respiratory Rate Blood Pressure Pulse Oximetry 04/07/18 00:00 04/07/18 01:00 04/07/18 02:00 Temperature 98.1 F Pulse Rate 88 102 H 105 H Respiratory Rate 18 Blood Pressure 142/77 H Pulse Oximetry 99 04/07/18 03:00 04/07/18 04:00 04/07/18 05:00 Temperature 97.9 F Pulse Rate 114 H 113 H 114 H Respiratory Rate 18 Blood Pressure 120/71 Pulse Oximetry 100 04/07/18 06:00 04/07/18 07:00 04/07/18 08:00 Temperature 97.9 F Pulse Rate 116 H 107 H 126 H Respiratory Rate 20 Blood Pressure 137/92 H Pulse Oximetry 99 04/07/18 09:00 04/07/18 10:00 04/07/18 11:00 Temperature Pulse Rate 130 H 116 H 133 H Respiratory Rate Blood Pressure Pulse Oximetry 04/07/18 11:36 04/07/18 12:00 04/07/18 13:00 Temperature 97.9 F Pulse Rate 109 H 119 H Respiratory Rate 20 Blood Pressure 131/71 Pulse Oximetry 98 100 04/07/18 14:00 04/07/18 15:00 04/07/18 16:00 Temperature 97.8 F Pulse Rate 130 H 94 H 113 H Respiratory Rate 20 Blood Pressure 132/72 Pulse Oximetry 99 04/07/18 17:00 Temperature Pulse Rate 102 H Respiratory Rate Blood Pressure Pulse Oximetry Intake & Output 04/06/18 04/07/18 04/07/18 18:59 06:59 18:59 Intake Total 640 / 640 480 / 480 960 / 960 Output Total 650 / 650 200 / 200 Balance -10 / -10 280 / 280 960 / 960 Weight 139 kg Intake: Oral 640 / 640 480 / 480 960 / 960 Output: Urine 650 / 650 200 / 200 Other: # Voids 2 3 4 Date of Last Bowel Movement 04/06/18 04/07/18 04/07/18 # Bowel Movements 1 1 Narrative: GENERAL: NAD SKIN: Warm and dry.+rash to bilateral armpits HEAD: Normocephalic. EYES: No scleral icterus. No injection or drainage. NECK: Supple, trachea midline. No JVD or lymphadenopathy. CARDIOVASCULAR: Irregular regular rate and rhythm without murmurs, gallops, or rubs. RESPIRATORY: Breath sounds equal bilaterally. No accessory muscle use. GASTROINTESTINAL: Abdomen soft, non-tender, nondistended. MUSCULOSKELETAL: No cyanosis, or edema. BACK: Nontender without obvious deformity. No CVA tenderness. Assessment and Plan - Assessment (1) Atrial flutter with rapid ventricular response Code(s): I48.92 - Unspecified atrial flutter Status: Acute (2) TBI (traumatic brain injury) Code(s): S06.9X9A - Unspecified intracranial injury with loss of consciousness of unspecified duration, initial encounter Status: Acute - Plan 1) Aflutter Did have a long pause overnight on the Cardizem drip, multiple other pauses Unable to increase Cardizem Have Dr. Liang see for consideration of ablation Would attempt to avoid PPM unless absolutely necessary 2) Cespedes Act 3) EF 65%
[2018-04-07] MEDS: LORazepam 1 MG Tablet PO SCH (21:42)
[2018-04-08] MEDS: Haloperidol Lactate Oral Conc 10 MG/5 ML UDC PO SCH ×2 (08:54→22:36)
[2018-04-08] MEDS: Gabapentin 300 MG Capsule PO SCH ×3 (08:54→17:20)
[2018-04-08] MEDS: Furosemide 40 MG Tablet PO SCH (08:54)
[2018-04-08] MEDS: Morphine Sulfate 30 MG IR Tablet PO PRN (08:54)
[2018-04-08] MEDS: carBAMazepine 200 MG Tablet PO SCH ×2 (08:55→22:35)
[2018-04-08] MEDS: ARIPiprazole 10 MG Tablet PO SCH (08:55)
[2018-04-08] MEDS: LORazepam 1 MG Tablet PO SCH ×2 (08:55→22:35)
[2018-04-08] MEDS: Haloperidol Inj 5 MG/ML Ampul IM SCH (08:57)
[2018-04-08] MEDS: Enoxaparin Inj 40 MG/0.4 ML Syringe SQ SCH (11:01)
--- NOTE | 2018-04-08 11:02 | P.PN ---
Subjective Interval history: awake and alert per patient history of TBI in the past and takes Tegretol and cymbalta telemetry- still in flutter rhythm Physical Exam Vital signs: Vital Signs 04/07/18 11:36 04/07/18 12:00 04/07/18 13:00 Temperature 97.9 F Pulse Rate 109 H 119 H Respiratory Rate 20 Blood Pressure 131/71 Pulse Oximetry 98 100 04/07/18 14:00 04/07/18 15:00 04/07/18 16:00 Temperature 97.8 F Pulse Rate 130 H 94 H 113 H Respiratory Rate 20 Blood Pressure 132/72 Pulse Oximetry 99 04/07/18 17:00 04/07/18 18:00 04/07/18 20:00 Temperature 97.8 F Pulse Rate 102 H 122 H 114 H Respiratory Rate 18 Blood Pressure 140/73 Pulse Oximetry 94 L 04/07/18 21:00 04/07/18 21:20 04/07/18 22:00 Temperature Pulse Rate 104 H 118 H Respiratory Rate Blood Pressure Pulse Oximetry 98 04/07/18 23:00 04/08/18 00:00 04/08/18 01:00 Temperature 97.5 F L Pulse Rate 108 H 116 H 118 H Respiratory Rate 18 16 Blood Pressure 144/80 H Pulse Oximetry 97 04/08/18 02:00 04/08/18 03:00 04/08/18 04:00 Temperature 98.2 F Pulse Rate 120 H 101 H 98 H Respiratory Rate 18 Blood Pressure 129/84 Pulse Oximetry 94 L 04/08/18 05:00 04/08/18 06:00 04/08/18 07:00 Temperature Pulse Rate 122 H 118 H 120 H Respiratory Rate Blood Pressure Pulse Oximetry 04/08/18 08:00 04/08/18 09:00 04/08/18 10:00 Temperature 97.7 F Pulse Rate 120 H 131 H 130 H Respiratory Rate 16 Blood Pressure 176/103 H Pulse Oximetry 97 04/08/18 10:17 Temperature Pulse Rate Respiratory Rate Blood Pressure Pulse Oximetry 97 Intake & Output 04/07/18 04/08/18 04/08/18 18:59 06:59 18:59 Intake Total 960 / 960 480 / 480 Balance 960 / 960 480 / 480 Weight 138.5 kg Intake: Oral 960 / 960 480 / 480 Other: # Voids 4 3 Date of Last Bowel Movement 04/07/18 04/07/18 04/07/18 # Bowel Movements 1 Narrative: awake and alert, no acute ditress, speech slow but clear anciteric neck supple lungs- no rales irrgularly irregular rhythm abdomen soft, notnender extremiteis no edema neuro exam- non focal Results - Labs CBC & Chem 7: 04/06/18 03:52 04/06/18 03:52 Assessment and Plan - Plan 52-year-old man with Atrial flutter with RVR History of A. fib Currently on Cardizem drip; Bystolic on hold Continue with aspirin 2D echo unremarkable Appreciate input from cardiology- plan for ablation today HYpertension- elevated BP readings start on Amlodipine 5 mg daily Tobacco abuse Tobacco counseling cessation provided Mood/psychotic disorder Currently Rubina acted Appreciate input from psychiatry Resume Rl. Tegretol and cymbalta Chronic pain continue home Neurontin, Oramorph while inpatient PT to treat and eval History of CHF Resume Lasix DVT PPX -Lovenox 40mg daily
[2018-04-08] MEDS: amLODIPine 5 MG Tablet PO SCH (11:49)
[2018-04-08] MEDS ORDERED: Sodium Chlor 0.9% Inj 500 ML IV.SIG ONE (15:58)
[2018-04-08] MEDS ORDERED: Succinylcholine Inj 200 MG/10 ML Vial IV.PUSH ONE (15:58)
[2018-04-08] MEDS ORDERED: Phenylephrine/NS 1000 MCG/10ML Syringe IV.PUSH ONE (15:58)
[2018-04-08] MEDS ORDERED: Lidocaine PF 1% Inj 5 ML Syringe INFILTRATN ONE (15:58)
[2018-04-08] MEDS ORDERED: Heparin/NS PF Inj 500 ML ONE (16:06)
[2018-04-08] MEDS ORDERED: Isoproterenol HCl Inj 0.2 MG/ML Ampul ONE (16:09)
[2018-04-08] MEDS ORDERED: Heparin 10,000 UNITS/10 ML Vial (for IV use) ONE (16:09)
[2018-04-08] MEDS ORDERED: Sodium Chlor 0.9% Inj 250 ML ONE (16:55)
[2018-04-08] MEDS ORDERED: fentaNYL Citrate Inj 100 MCG/2 ML Ampul ONE (17:16)
--- NOTE | 2018-04-08 17:31 | ECHRPT ---
Indication: A FIB FLUTTER CONCLUSIONS No clot seen in left atrium nor left atrial appendage Adfequate left venticular systolic function BP: / HR: Rhythm: Technical Quality: Medications Sedation was administered Complications There were no complications prior to, during or in recovery from the transesophag eal echocardiogram.. Proc. Components FINDINGS LEFT VENTRICLE Normal left ventricular size and wall thickness. The left ventricular systolic function is normal wi th an estimated ejection fraction in the range of 60-65%. Left ventricular diastolic function parameters a re normal. RIGHT VENTRICLE Normal right ventricular size and systolic function. LEFT ATRIUM The left atrial size is normal. RIGHT ATRIUM The right atrial size is normal. ATRIAL APPENDAGES Normal left atrial appendage size with no evidence of thrombus formation. ATRIAL SEPTUM Normal atrial septal thickness without atrial level shunting by limited color doppler interrogation. AORTA The aortic root and proximal ascending aorta are normal in size on limited imaging. MITRAL VALVE Trace mitral valve regurgitation. AORTIC VALVE Trileaflet aortic valve. No aortic valve stenosis or regurgitation. TRICUSPID VALVE No tricuspid regurgitation. PERICADIUM There is no pericardial effusion. Jose Armando Liang MD (Electronically Signed) Final Date:08 April 2018 17:30
--- NOTE | 2018-04-08 17:42 | P.PNCA ---
Subjective Interval history: No events overnight Heart rates still elevated Physical Exam Vital signs: Vital Signs 04/07/18 18:00 04/07/18 20:00 04/07/18 21:00 Temperature 97.8 F Pulse Rate 122 H 114 H 104 H Respiratory Rate 18 Blood Pressure 140/73 Pulse Oximetry 94 L 04/07/18 21:20 04/07/18 22:00 04/07/18 23:00 Temperature 97.5 F L Pulse Rate 118 H 108 H Respiratory Rate 18 Blood Pressure 144/80 H Pulse Oximetry 98 97 04/08/18 00:00 04/08/18 01:00 04/08/18 02:00 Temperature Pulse Rate 116 H 118 H 120 H Respiratory Rate 16 Blood Pressure Pulse Oximetry 04/08/18 03:00 04/08/18 04:00 04/08/18 05:00 Temperature 98.2 F Pulse Rate 101 H 98 H 122 H Respiratory Rate 18 Blood Pressure 129/84 Pulse Oximetry 94 L 04/08/18 06:00 04/08/18 07:00 04/08/18 08:00 Temperature 97.7 F Pulse Rate 118 H 120 H 120 H Respiratory Rate 16 Blood Pressure 176/103 H Pulse Oximetry 97 04/08/18 09:00 04/08/18 10:00 04/08/18 10:17 Temperature Pulse Rate 131 H 130 H Respiratory Rate Blood Pressure Pulse Oximetry 97 04/08/18 11:00 04/08/18 12:00 04/08/18 12:50 Temperature 98.1 F Pulse Rate 119 H 118 H 133 H Respiratory Rate 18 Blood Pressure 149/78 H Pulse Oximetry 95 04/08/18 14:00 04/08/18 14:35 04/08/18 16:00 Temperature 98.4 F Pulse Rate 132 H 117 H 121 H Respiratory Rate 20 Blood Pressure 162/94 H Pulse Oximetry 95 04/08/18 17:19 Temperature Pulse Rate Respiratory Rate Blood Pressure Pulse Oximetry 95 Intake & Output 04/07/18 04/08/18 04/08/18 18:59 06:59 18:59 Intake Total 960 / 960 480 / 480 270 / 270 Output Total 675 / 675 Balance 960 / 960 480 / 480 -405 / -405 Weight 138.5 kg Intake: IV 30 / 30 Heparin/NS PF Inj 500 ML @ 0 30 / 30 mls/hr .ROUTE .STK-MED ONE Rx#: [id number] Oral 960 / 960 480 / 480 240 / 240 Output: Urine 675 / 675 Other: # Voids 4 3 Date of Last Bowel Movement 04/07/18 04/07/18 04/07/18 # Bowel Movements 1 Narrative: GENERAL: NAD SKIN: Warm and dry.+rash to bilateral armpits HEAD: Normocephalic. EYES: No scleral icterus. No injection or drainage. NECK: Supple, trachea midline. No JVD or lymphadenopathy. CARDIOVASCULAR: Irregular regular rate and rhythm without murmurs, gallops, or rubs. RESPIRATORY: Breath sounds equal bilaterally. No accessory muscle use. GASTROINTESTINAL: Abdomen soft, non-tender, nondistended. MUSCULOSKELETAL: No cyanosis, or edema. BACK: Nontender without obvious deformity. No CVA tenderness. Assessment and Plan - Assessment (1) Atrial flutter with rapid ventricular response Code(s): I48.92 - Unspecified atrial flutter Status: Acute (2) TBI (traumatic brain injury) Code(s): S06.9X9A - Unspecified intracranial injury with loss of consciousness of unspecified duration, initial encounter Status: Acute - Plan 1) Aflutter Did have a long pause overnight on the Cardizem drip, multiple other pauses Unable to increase Cardizem Have Dr. Liang seeing, plan on ablation Would attempt to avoid PPM unless absolutely necessary 2) Cespedes Act 3) EF 65%
[2018-04-08] MEDS ORDERED: Dexmedetomidine Inj 200 MCG/2 ML Vial ONE (18:07)
--- NOTE | 2018-04-08 18:09 | CATHPROC ---
[employer] HIS Report Study Information Study Number Admission Scheduled Start Study Start [id number] Apr 05 2018 10:22AM 04/08/2018 Apr 08 2018 3:51PM [place] Service Electrophysiology Study Admit Source Facility Department Emergency department [facility] - Research Geologist Physician and Clinical Staff Initial Jose Armando Poe Bread Room Hand Yeni Osullivan RN Bread Room Hand Crystal Wilder,RADHA TECH2 Other Anesthesia, MUCK FARMER Recorder Samra Chaves BSN Scrub Yefri Samson,RT(R) Procedures Performed Procedure Ablation Procedure Equipment Time Job Analyst Description Size Mfg Part Number Used/Scraped BIOSENSE BYRNE CATHETER, CELSIUS DS, 8MM, F [id number] 16:52 FR 7 Used INC. TYPE QUAD *[id number] 17:14 CARDIVA MEDICAL VASCADE, FR5 CLOSURE SYSTEM FR 5 Used *[id number] 17:14 [employer] VASCADE, FR5 CLOSURE SYSTEM FR 5 Used *[id number] 17:14 [employer]ICAL VASCADE, FR5 CLOSURE SYSTEM FR 5 Used *[id number] 17:14 [employer] MEDICAL VASCADE, FR6 CLOSURE SYSTEM FR 6\\7 [id number] Used 17:14 CARD[employer]A MEDICAL VASCADE, FR6 CLOSURE SYSTEM FR 6\\7 [id number] Used [id number] 16:05 Cadent BLANKET,WARM AIR CCL * Used *[id number] 16:05 Cadent PACK, CCL CUSTOM * Used *[id number] 16:05 Zooma[employer] PACER MENDEZ, LIMB * 2530 *[id number] Used [id number] 16:17 NAMIC TUBING, HIGH PRESSURE 48" 48" Used *[id number] 486070 16:17 [employer] MED[employer] CATHETER, JSN, QUAD FR 5 Used *[id number] 16:17 [employer] MED[employer] CATHETER, JSN, QUAD FR 5 Used *[id number] 16:17 [employer] MEDICAL CATHETER, JSN, QUAD FR 5 Used *[id number] 16:17 [employer] MEDICAL CATHETER, JSN, QUAD FR 5 Used *[id number] 16:05 [employer] MEDICAL ELECTRODE KIT, KELSI X SURFACE * Used *[id number] [id number] 16:05 [employer] SHEATH, EPS, FR5 FAST CATH FR 5 Used *[id number] 439381 16:05 [employer] MEDICAL SHEATH, EPS, FR5 FAST CATH FR 5 Used *[id number] [id number] 16:05 [employer] MEDICAL SHEATH, EPS, FR5 FAST CATH FR 5 Used *[id number] 742018 16:05 [employer] MEDICAL SHEATH, EPS, FR6 FAST CATH FR 6 Used *[id number] 16:05 [employer] MEDICAL SHEATH, EPS, FR8 FAST CATH FR 8 Used *[id number] [facility], ELECTROSURGICAL 16:05 * [id number] *[id number] Used SURGICAL GROUNDING (BLUE) Labs Hgb (g/dl) Hct (%) WBC (l/cumm) Platelets (thousands) 11.60-17.00 35.00-51.00 4.00-11.00 150.00-450.00 17.4 50.3 11.3 179 Glucose (mg/dl) BUN (mg/dl) Creatinine (mg/dl) BUN:Creatinine (1:x) 74.00-106.00 7.00-18.00 0.50-1.30 10.00-20.00 94 10 0.6 16.7 Na (meq/l) K (meq/l) 136.00-145.00 3.50-5.10 141 3.7 Troponin I (ng/ml) CPK-MB (ng/ML) 0.02-0.05 0.50-3.60 0.02 Not Drawn Medication Medication Total Dose (Bolus/Oral) Medication Total Dosage/Unit 1% XYLOCAINE 40 mL Medications (Bolus/Oral) Medication Time Given Dosage/Unit Administered By Reason 1% XYLOCAINE 04/08/2018 4:47:23 PM 20 mL Jose Armando Liang 20 mL 1% XYLOCAINE given in lab by Jose Armando Liang in Left Groin via Subcutaneous. Ordered by Kar Liang. 1% XYLOCAINE 04/08/2018 4:50:54 PM 20 mL Jose Armando Liang 20 mL 1% XYLOCAINE given in lab by Jose Armando Liang in Right Groin via Subcutaneous. Ordered by Santino Liang. Medication (Drip) Medication Time Given Dosage/Unit Concentration/Unit Diluent (ml) Solution ISUPREL 04/08/2018 5:10:27 PM 10 mcg/min 1 mg 250 NaCl .9 10 mcg/min ISUPREL given in lab by Anesthesia MUCK FARMER via Peripheral IV. Pump/Drip Flow = 150 ml/hr usi ng NaCl .9 with a concentration of 1 mg in 250 ml. Ordered by Jose Armando Liang. ISUPREL DRIP STOPPED 04/08/2018 5:21:29 PM 0 units/hr 0 0 units/hr ISUPREL DRIP STOPPED given in lab by Anesthesia, JOSE. Pump/Drip Flow = 0 ml/hr using [Suzy trinhon Name]. Ordered by Jose Armando Liang. Initial Case Assessment Cardiovascular HR Rhythm NIBP Chest Pain 131 flutter 175/102 0 Edema Present Skin color Skin None Normal Warm Dry Circulatory - Lower Extremities Color Lower Right Color Lower Left Normal Normal Neurological State Oriented to time-place- Alert Moves all extremities person Respiration - General Respiration Rate SpO2 (%) O2 (lpm) (B/min) 24 97 4 Chronological Log Time Study Chronological Log 15:58:25 Patient arrived via Bed. 15:58:30 Patient Name, D.O.B, / Armband Verified By R.N. 15:58:37 Anesthesia at bedside. Assumes care of patient. 16:00:34 Consent signed by the physician and the patient and verified by the Research Geologist staff. 16:00:35 Pre-op and post- op instructions given; patient acknowledges understanding of instructions. 16:00:42 Patient has been NPO for More than 6Hrs. 16:00:43 Skin Breakdown- none per patient 16:04:32 Patient Warmer Placed on the Table. 16:04:36 Disposable Defibrillator Pads Placed On Patient. 16:04:37 Sharla Prominences Protected 16:05:28 A # 20 IV was noted in the Hand (right). Grade = 0 NS at KVO 16:05:31 History and physical on the chart or being dictated. Assessment: Initial Case, XN=669 BPM, Rhythm=flutter, EOJG=628/102 mmhg, Chest Pain=0, Edema=No ne, Color=Normal, Skin = Warm, Dry Lower Right Extremities: Color=Normal 16:11:22 Lower Left Extremities: Color=Normal Neurological: State=Alert, Ox3, LAINEZ Respiration: Resp=24 B/min, SpO2=97 %, O2=4 lpm 16:16:26 MD paged 16:22:32 MD responded 16:24:11 Bilateral groins prepped with 2% chlorhexidine, and draped after a 3 minute waiting time. 16::51 Reference ECG taken 16:31:59 MD arrived. 16:35:38 Dr Lerner in room for intubation 16:40:04 Patient intubated Time Out. Correct patient, procedure, procedure equipment, site and side verified with physicia n present. Time 16:43:36 concurred by MD, individual staff and MUCK FARMER. Time Out #2 - Consents verified, patient in correct position, all results are labled and displa yed, safety precautions 16:43:36 taken, antibiotics administered. Time out concurred by MD, individual staff and MUCK FARMER in procedu re 16:43:59 Case Start 16:44:13 BETINA in progress 16:46:51 BETINA complete 16:47:23 20 mL 1% XYLOCAINE given in lab by Jose Armando Liang in Left Groin via Subcutaneous. Ordered by Jose Armando Liang. 16:48:01 Vascular access was obtained in the Fem Vein (left). 16:48:39 Vascular access was obtained in the Fem Vein (left). 16:49:15 Vascular access was obtained in the Fem Vein (left). 16:49:49 A SHEATH, EPS, FR5 FAST CATH FR 5 was advanced into the Fem Vein (left) using the Percutane ous technique. 16:50:00 A SHEATH, EPS, FR5 FAST CATH FR 5 was advanced into the Fem Vein (left) using the Percutane ous technique. 16:50:14 A SHEATH, EPS, FR5 FAST CATH FR 5 was advanced into the Fem Vein (left) using the Percutane ous technique. 16:50:54 20 mL 1% XYLOCAINE given in lab by Jose Armando Liang in Right Groin via Subcutaneous. Ordered b y Jose Armando Liang. 16:51:44 Vascular access was obtained in the Fem Vein (right). 16:52:23 Vascular access was obtained in the Fem Vein (right). 16:52:30 A SHEATH, EPS, FR6 FAST CATH FR 6 was advanced into the Fem Vein (right) using the Percutan eous technique. 16:52:46 A SHEATH, EPS, FR8 FAST CATH FR 8 was advanced into the Fem Vein (right) using the Percutan eous technique. A CATHETER, JSN, QUAD FR 5 was advanced vis Fem Vein (right) and placed in the CS. Placement wa s visually 16:54:23 confirmed under fluoroscopy. A CATHETER, JSN, QUAD FR 5 was advanced vis Fem Vein (left) and placed in the HIS. Placement wa s visually 16:54:56 confirmed under fluoroscopy. A CATHETER, JSN, QUAD FR 5 was advanced vis Fem Vein (left) and placed in the RVA. Placement wa s visually 16:55:39 confirmed under fluoroscopy. A CATHETER, JSN, QUAD FR 5 was advanced vis Fem Vein (left) and placed in the HRA. Placement wa s visually 16:55:46 confirmed under fluoroscopy. A CATHETER, KIMSIUS DS, 8MM, F TYPE QUAD FR 7 was advanced vis Fem Vein (right) and placed in t he HRA. 16:57:37 Placement was visually confirmed under fluoroscopy. 16:58:22 Ablation in progress 17:05:43 EP Study in progress 10 mcg/min ISUPREL given in lab by JOSE Velez via Peripheral IV. Pump/Drip Flow = 150 ml/ hr using NaCl .9 17:10:27 with a concentration of 1 mg in 250 ml. Ordered by Jose Armando Liang. 0 units/hr ISUPREL DRIP STOPPED given in lab by Anesthesia, JOSE. Pump/Drip Flow = 0 ml/hr usin g [Solution Name]. 17:21:29 Ordered by Jose Armando Liang. 17:21:58 Catheter(s) removed without difficulty 17:23:33 PACU called. Spoke to Kristin 17:23:45 Bedside Report will be given. 17:23:53 No case complications noted. 17:23:54 Cine recording checked. 17:24:00 Ablation procedure performed: Aflutter. 17:24:04 EP Procedure was performed. 17:26:23 VASCADE, FR5 CLOSURE SYSTEM FR 5 placement in the Fem Vein (left) 17:27:32 VASCADE, FR5 CLOSURE SYSTEM FR 5 placement in the Fem Vein (left) 17:28:35 VASCADE, FR5 CLOSURE SYSTEM FR 5 placement in the Fem Vein (left) 17:29:39 VASCADE, FR6 CLOSURE SYSTEM FR 6\\7 placement in the Fem Vein (right) 17:30:32 VASCADE, FR6 CLOSURE SYSTEM FR 6\\7 placement in the Fem Vein (right) 17:30:49 Case End (Physician broke scrub) 17:32:13 Sterile dressing applied to site 17:33:09 Implantable Device card placed in patient's chart. Patient not adequately saturating; increased ETCO2. Anesthesia requesting vent in PACU and grady ent to remain 17:48:28 intubated; Kristin aware 17:52:[facility] 17[facility] Defibrillator and ground pads removed. Skin intact. End Study - Contrast Media Used In Study Contrast Total Opened (mL) Total Used (mL) Total Wasted (mL) Omnipaque 0 0 0 End Study - Maximum Contrast Load Max Contrast Load (mL) 1155.3 End Study - Radiation Exposure Fluoro Time (minutes) 3.0 End Study - Patient Disposition Complications Transferred To No Telemetry Bed
[2018-04-08] MEDS ORDERED: Dexmedetomidine Inj 200 MCG in Sodium Chlor 0.9% Inj 48 ML IV.CONT PRN (18:10)
[2018-04-09] MEDS: Haloperidol Inj 5 MG/ML Ampul IM SCH ×2 (00:10→09:39)
[2018-04-09 06:30] LABS: Activated Partial Thrombo Time 29.3 sec (24.3-30.1); INR 1.1 Ratio; Prothrombin Time 10.7 sec (9.8-11.6)
--- NOTE | 2018-04-09 07:51 | P.PN ---
Subjective Interval history: telemetry in SR awake and alert, no complains- "just hungry" up on chair still "smokes a pack a day" Physical Exam Vital signs: Vital Signs 04/08/18 08:00 04/08/18 09:00 04/08/18 10:00 Temperature 97.7 F Pulse Rate 120 H 131 H 130 H Respiratory Rate 16 Blood Pressure 176/103 H Pulse Oximetry 97 04/08/18 10:17 04/08/18 11:00 04/08/18 12:00 Temperature 98.1 F Pulse Rate 119 H 118 H Respiratory Rate 18 Blood Pressure 149/78 H Pulse Oximetry 97 95 04/08/18 12:50 04/08/18 14:00 04/08/18 14:35 Temperature Pulse Rate 133 H 132 H 117 H Respiratory Rate Blood Pressure Pulse Oximetry 04/08/18 16:00 04/08/18 17:19 04/08/18 18:06 Temperature 98.4 F 98.7 F Pulse Rate 121 H 120 H Respiratory Rate 20 15 Blood Pressure 162/94 H 120/58 L Pulse Oximetry 95 95 95 04/08/18 18:15 04/08/18 18:30 04/08/18 18:45 Temperature Pulse Rate 127 H 120 H 119 H Respiratory Rate 24 24 24 Blood Pressure 158/81 H 106/59 L 103/59 L Pulse Oximetry 98 98 95 04/08/18 19:00 04/08/18 19:15 04/08/18 19:30 Temperature Pulse Rate 120 H 110 H 108 H Respiratory Rate 24 24 24 Blood Pressure 95/49 L 90/40 L 82/32 L Pulse Oximetry 98 99 98 04/08/18 19:45 04/08/18 19:50 04/08/18 20:00 Temperature Pulse Rate 107 H Respiratory Rate 24 Blood Pressure 121/60 Pulse Oximetry 98 98 96 04/08/18 21:00 04/08/18 22:00 04/08/18 23:00 Temperature Pulse Rate 109 H 108 H 96 H Respiratory Rate Blood Pressure Pulse Oximetry 04/08/18 23:25 04/09/18 00:00 04/09/18 01:00 Temperature 97.5 F L Pulse Rate 103 H 80 Respiratory Rate 20 Blood Pressure 100/51 L Pulse Oximetry 99 96 04/09/18 02:00 04/09/18 03:00 04/09/18 04:00 Temperature 98.1 F Pulse Rate 88 90 99 H Respiratory Rate 20 Blood Pressure 142/73 H Pulse Oximetry 95 04/09/18 04:21 04/09/18 05:00 04/09/18 06:00 Temperature Pulse Rate 82 74 Respiratory Rate Blood Pressure Pulse Oximetry 96 Intake & Output 04/08/18 04/09/18 04/09/18 18:59 06:59 18:59 Intake Total 395 / 395 720 / 720 Output Total 675 / 675 Balance -280 / -280 720 / 720 Intake: IV 155 / 155 Heparin/NS PF Inj 500 ML @ 0 30 / 30 mls/hr .ROUTE .STK-MED ONE Rx#: [id number] Cardizem Inj 125 MG In NS Inj 125 / 125 100 ML @ 5 MG/HR 5 mls/hr IV. CONT TITRATE PRN Rx#:[id number] Oral 240 / 240 720 / 720 Output: Urine 675 / 675 Other: # Voids 1 Date of Last Bowel Movement 04/07/18 04/07/18 Narrative: awake and alert, interactive and pleasant anicteric neck supple lungs- no rales, decreased breath sounds, no wheezes regular rhythm abdomen- flabby soft, nontender extremiteis no edema neuro exam- non focal Results - Labs CBC & Chem 7: 04/06/18 03:52 04/06/18 03:52 Laboratory Results - last 24 hr 04/09/18 06:12 PT 10.7 INR 1.1 APTT 29.3 - Procedures 04/08-BETINA with cardiac ablation Assessment and Plan - Plan 52-year-old man with Atrial flutter with RVR S/P ablation 04/08- now in SR History of A. fib- s/p ablation off Cardizem drip; Continue with eliquis 5 mg po bid 2D echo unremarkable HYpertension- elevated BP readings- better started on Amlodipine 5 mg daily Tobacco abuse Likey underlying COPD, ADAM suspect Spiriva 1 puff daily Tobacco counseling cessation provided get a walk test. get PFTs d/w health care faciluity care tech need sleep studies done Mood/psychotic disorder History of TBI Currently Rubina mathews Appreciate input from psychiatry Resume Abilify. Tegretol and cymbalta Chronic pain continue home Neurontin, Oramorph while inpatient PT to treat and eval History of CHF- not in clinical failure Resume Lasix Echo unremarkable DVT PPX -Lovenox 40mg daily DC planning- patient came from a senior living
[2018-04-09 08:00] VITALS: RESP 18
[2018-04-09 09:06] LABS: ABG PCO2 59 mmHg (38-42)
[2018-04-09 09:07] LABS: ABG Base Excess 0.6 mmol/L (-2-2); ABG PO2 70 mmHg (60-120)
[2018-04-09] MEDS: Gabapentin 300 MG Capsule PO SCH ×3 (09:31→18:00)
[2018-04-09] MEDS: ARIPiprazole 10 MG Tablet PO SCH (09:31)
[2018-04-09] MEDS: carBAMazepine 200 MG Tablet PO SCH (09:31)
[2018-04-09] MEDS: amLODIPine 5 MG Tablet PO SCH (09:32)
[2018-04-09] MEDS: Furosemide 40 MG Tablet PO SCH (09:32)
[2018-04-09] MEDS: LORazepam 1 MG Tablet PO SCH (09:32)
[2018-04-09] MEDS: Haloperidol Lactate Oral Conc 10 MG/5 ML UDC PO SCH (09:32)
--- NOTE | 2018-04-09 09:54 | MA ---
cc: Jose Armando Liang MD DATE: 04/08/2018 PROCEDURE PERFORMED: Electrophysiology with ablation of atrial flutter, repeat electrophysiology study and isuprel infusion. INDICATIONS: Mr. Santos is a 52-year-old gentleman with episode of atrial fibrillation, heart rate very difficult to control, very symptomatic, referred for electrophysiology study and ablation. The risks, the nature and the benefits of the procedure were clearly said to him. Risks include pneumothorax, cardiac perforation, stroke, need for open heart surgery and even . The patient understood and agreed to proceed. DESCRIPTION OF PROCEDURE: After written informed consent was obtained prior to electrophysiology study, the patient was kept on the table where he was prepped and draped in the usual sterile fashion. Conscious sedation was initiated and maintained throughout the procedure by the anesthesiologist. Once sedation was verified, the left inguinal area was anesthetized with 2% Xylocaine. Using modified Seldinger technique, the left femoral vein was cannulated location on 3 occasions and 2 guidewires were advanced. Over the wire, three 5-Dutch Hemaquet were advanced. Then, the left femoral vein was cannulated on 2 occasions and 2 guidewires were advanced over the wire. A 6 and an 8-Dutch Hemaquets were advanced. Then, under fluoroscopic guidance through the 5 and 6-Dutch Hemaquets, four 5-Dutch Shantel curved quadripolar electrophysiology catheters were advanced and placed under his right atrium, coronary sinus and right ventricular apex. Basic interval was measured. The patient was in atrial flutter. Flutter cycle length was around 300 milliseconds. was performed and it was positive. Through the 8-Dutch Hemaquet, a Cordis Cuellar with F-curve 8 mm mapping and radiofrequency ablation catheter was advanced. Using Nobl endocardial solution mapping system, a 3-dimensional configuration of the right atrium was obtained. Then, the catheter . Radiofrequency energy was delivered during ablation. The patient recovered in sinus rhythm. Further burn was delivered in the area. Then atrial pacing protocol was performed. No tachyarrhythmia was induced. activation to the . No tachyarrhythmia was induced. Isuprel infusion was initiated at 10 mcg. No tachyarrhythmia was induced. At that point, the procedure was complete. All catheters were removed. The patient tolerated the procedure. No incident reported. CONCLUSION: 1. ELECTROCARDIOGRAM: At baseline the patient was in atrial flutter. Postprocedure, the patient in sinus rhythm. 2. BASIC INTERVAL: Base cycle length was around 500 milliseconds. Post-ablation it was around 840, AH was around 100 and HV was around 46 milliseconds. 3. ATRIAL PACING PROTOCOL: Wenckebach of the node post-ablation was around 430 milliseconds. No tachyarrhythmia was induced post-ablation. 4. VENTRICULAR PACING PROTOCOL: There was VA conduction. No tachyarrhythmia was induced. 5. TACHYARRHYTHMIA: Atrial flutter was mapped and ablated. ablation was successful. CONCLUSION: Electrophysiology study, mapping and radiofrequency ablation of atrial flutter. COMMENT AND RECOMMENDATIONS: The patient is going to be transferred to recovery room. He will be observed. When stable, can be discharged home. MD STAS Matias/javad/ll , 05:40 PM , 05:51 PM
[2018-04-09] MEDS: Morphine Sulfate 30 MG IR Tablet PO PRN (11:34)
[2018-04-09 15:25] VITALS: BP 133/60; TEMP 98.4
[2018-04-09] MEDS ORDERED: Tiotropium Bromide 18 MCG/ACT Inhaler INH SCH (16:00)
--- NOTE | 2018-04-09 16:49 | P.PN ---
Subjective Interval history: Feeling better Physical Exam Vital signs: Vital Signs 04/08/18 17:19 04/08/18 18:06 04/08/18 18:15 Temperature 98.7 F Pulse Rate 120 H 127 H Respiratory Rate 15 24 Blood Pressure 120/58 L 158/81 H Pulse Oximetry 95 95 98 Pulse Oximetry [Exertion on Room Air] Pulse Oximetry [Resting on Room Air] Pulse Oximetry [Resting with Oxygen] 04/08/18 18:30 04/08/18 18:45 04/08/18 19:00 Temperature Pulse Rate 120 H 119 H 120 H Respiratory Rate 24 24 24 Blood Pressure 106/59 L 103/59 L 95/49 L Pulse Oximetry 98 95 98 Pulse Oximetry [Exertion on Room Air] Pulse Oximetry [Resting on Room Air] Pulse Oximetry [Resting with Oxygen] 04/08/18 19:15 04/08/18 19:30 04/08/18 19:45 Temperature Pulse Rate 110 H 108 H 107 H Respiratory Rate 24 24 24 Blood Pressure 90/40 L 82/32 L 121/60 Pulse Oximetry 99 98 98 Pulse Oximetry [Exertion on Room Air] Pulse Oximetry [Resting on Room Air] Pulse Oximetry [Resting with Oxygen] 04/08/18 19:50 04/08/18 20:00 04/08/18 21:00 Temperature Pulse Rate 109 H Respiratory Rate Blood Pressure Pulse Oximetry 98 96 Pulse Oximetry [Exertion on Room Air] Pulse Oximetry [Resting on Room Air] Pulse Oximetry [Resting with Oxygen] 04/08/18 22:00 04/08/18 23:00 04/08/18 23:25 Temperature Pulse Rate 108 H 96 H Respiratory Rate Blood Pressure Pulse Oximetry 99 Pulse Oximetry [Exertion on Room Air] Pulse Oximetry [Resting on Room Air] Pulse Oximetry [Resting with Oxygen] 04/09/18 00:00 04/09/18 01:00 04/09/18 02:00 Temperature 97.5 F L Pulse Rate 103 H 80 88 Respiratory Rate 20 Blood Pressure 100/51 L Pulse Oximetry 96 Pulse Oximetry [Exertion on Room Air] Pulse Oximetry [Resting on Room Air] Pulse Oximetry [Resting with Oxygen] 04/09/18 03:00 04/09/18 04:00 04/09/18 04:21 Temperature 98.1 F Pulse Rate 90 99 H Respiratory Rate 20 Blood Pressure 142/73 H Pulse Oximetry 95 96 Pulse Oximetry [Exertion on Room Air] Pulse Oximetry [Resting on Room Air] Pulse Oximetry [Resting with Oxygen] 04/09/18 05:00 04/09/18 06:00 04/09/18 07:00 Temperature Pulse Rate 82 74 101 H Respiratory Rate Blood Pressure Pulse Oximetry Pulse Oximetry [Exertion on Room Air] Pulse Oximetry [Resting on Room Air] Pulse Oximetry [Resting with Oxygen] 04/09/18 07:47 04/09/18 08:00 04/09/18 09:00 Temperature 98.6 F Pulse Rate 91 H 88 88 Respiratory Rate 18 Blood Pressure 141/55 H Pulse Oximetry 97 88 L Pulse Oximetry [Exertion on Room Air] Pulse Oximetry [Resting on Room Air] Pulse Oximetry [Resting with Oxygen] 04/09/18 10:00 04/09/18 10:39 04/09/18 11:00 Temperature Pulse Rate 88 77 Respiratory Rate Blood Pressure Pulse Oximetry 97 Pulse Oximetry [Exertion on Room Air] Pulse Oximetry [Resting on Room Air] Pulse Oximetry [Resting with Oxygen] 04/09/18 11:27 04/09/18 12:00 04/09/18 13:00 Temperature 98.8 F Pulse Rate 91 H 86 84 Respiratory Rate 18 Blood Pressure 134/62 Pulse Oximetry 93 L Pulse Oximetry [Exertion on Room Air] Pulse Oximetry [Resting on Room Air] Pulse Oximetry [Resting with Oxygen] 04/09/18 14:00 04/09/18 15:06 04/09/18 15:25 Temperature 98.4 F Pulse Rate 78 81 Respiratory Rate 18 Blood Pressure 133/60 Pulse Oximetry 92 L 93 L Pulse Oximetry [Exertion on Room Air] Pulse Oximetry [Resting on Room Air] Pulse Oximetry [Resting with Oxygen] 04/09/18 16:24 Temperature Pulse Rate Respiratory Rate Blood Pressure Pulse Oximetry Pulse Oximetry [Exertion on Room Air] 85 L Pulse Oximetry [Resting on Room Air] 92 L Pulse Oximetry [Resting with Oxygen] 94 L Intake & Output 04/08/18 04/09/18 04/09/18 18:59 06:59 18:59 Intake Total 395 / 395 720 / 720 Output Total 675 / 675 Balance -280 / -280 720 / 720 Intake: IV 155 / 155 Heparin/NS PF Inj 500 ML @ 0 30 / 30 mls/hr .ROUTE .STK-MED ONE Rx#: [id number] Cardizem Inj 125 MG In NS Inj 125 / 125 100 ML @ 5 MG/HR 5 mls/hr IV. CONT TITRATE PRN Rx#:[id number] Oral 240 / 240 720 / 720 Output: Urine 675 / 675 Other: # Voids 1 Date of Last Bowel Movement 04/07/18 04/07/18 04/08/18 - Constitutional no acute distress - Routine HEENT Exam Head: Present: normocephalic Eye: Present: PERRL ENT: Present: mucous membranes moist - Routine Respiratory Exam Present: CTA bilaterally - Routine Cardiovascular Exam Present: RRR - Routine Neurological Exam Present: alert, oriented X3 Results - Labs CBC & Chem 7: 04/06/18 03:52 04/06/18 03:52 Laboratory Results - last 24 hr 04/08/18 04/09/18 18:50 06:12 PT 10.7 INR 1.1 APTT 29.3 Puncture Site Not Reportable Patient Temperature 98.6 O2 Saturation 88 L* ABG pH 7.28 L* ABG pCO2 59 H ABG pO2 70 ABG HCO3 27 H ABG O2 Content 21.9 H ABG Base Excess 0.6 ABG Methemoglobin 1.8 Hemoglobin 17.8 H Carboxyhemoglobin 1.3 O2 Delivery Device Ventilator Inspired O2 40 Critical Value Yes - Procedures 04/08-BETINA with cardiac ablation Assessment and Plan - Assessment (1) Atrial flutter with rapid ventricular response Code(s): I48.92 - Unspecified atrial flutter Status: Acute Plan: SP ablation. Doing well In sinus rhythm Anticoagulation initiated Can be DH Follow up as previously scheduled (2) TBI (traumatic brain injury) Code(s): S06.9X9A - Unspecified intracranial injury with loss of consciousness of unspecified duration, initial encounter Status: Acute
--- NOTE | 2018-04-09 16:56 | P.DS ---
Date of admission: 04/05/18 10:22 Primary care physician: No Primary Care Physician Attending physician on discharge: Sonia Mcintosh Anticipated date of discharge: 04/09/18 Brief History from admission: Mr. Santos is a 52 yo M with PMH physiatric illness, atrial fibrillation, tobacco abuse, hyperlipidemia who presents to [facility] via police under Cespedes Act. [ Per EMR review, patient found to be in likely 2-1 atrial flutter while in ED. He was started on Cardizem bolus and drip.] Per patient, he left his assisted living facility due to frustration with one of the other residents and was [place] [address]. He does not report any current psychiatric concerns or suicidal ideation. Regarding patient' s atrial fibrillation/flutter, he reports being diagnosed with this previously and that he last saw a Legal Instruments Examiner ~5 mo ago. He states he takes unknown medications for this; he has not taken anything for ~3 days since leaving his [facility]. Patient denies any symptoms at this time such as chest pain, shortness of breath , abdominal pain, abnormal urination, or abnormal bowel movements. He reports some fatigue. He also reports some chronic back pain. PMH: Hyperlipidemia, atrial fibrillation, hyperlipidemia, psychiatric disease SH: Prior alcoholism, sober for 16 years. Smoking 2 PPD. FH: Parents live in [place] Home meds: Pain- Neurontin TID, morphine ER-30 mg Lipid- Zocor Neuro/Psych- Tegretol 400mg AM/400mg PM, Cymbalta 30mg AM ASA Ambien at night ? atrial fibrillation medication *Call placed to [facility] to clarify home medications; did not receive call back at this time Patient update on day of discharge: awake and alert in SR DS: Medications - Discharge Medications Prescriptions: apixaban [Eliquis] 5 mg PO BID 42 Days #84 tab DS: Summary Hospital Course: 52-year-old man with Atrial flutter with RVR S/P ablation 04/08- now in SR History of A. fib off Cardizem drip; DC Bystolic Continue with eliquis 5 mg po bid x 6 weeks 2D echo unremarkable ff up with cardiology in 1-2 weeks in [place] HYpertension- elevated BP readings- better started on Amlodipine 5 mg daily Tobacco abuse Likey underlying COPD, ADAM suspect Spiriva 1 puff daily Tobacco counseling cessation provided get a walk test.- qualified for home 02 get PFTs can be done as OP d/w health care faciluity health care administrator need sleep studies done- they were actually planning to get one for him Mood/psychotic disorder History of TBI Appreciate input from psychiatry Resume Rl. Tegretol and cymbalta Chronic pain continue home Neurontin, Oramorph while inpatient PT to treat and eval History of CHF- not in clinical failure Resume Lasix Echo unremarkable DVT PPX - started on eliquis DC planning- patient came from a half-way d/w senior living staff- OP ff up with PCP with referrral to a cardiology for ff up - patient going back to [place] - Time Spent with Patient Total time spent providing and/or coordinating discharge services: Less than 30 minutes Exam Vital signs: Vital Signs 04/08/18 17:19 04/08/18 18:06 04/08/18 18:15 Temperature 98.7 F Pulse Rate 120 H 127 H Respiratory Rate 15 24 Blood Pressure 120/58 L 158/81 H Pulse Oximetry 95 95 98 Pulse Oximetry [Exertion on Room Air] Pulse Oximetry [Resting on Room Air] Pulse Oximetry [Resting with Oxygen] 04/08/18 18:30 04/08/18 18:45 04/08/18 19:00 Temperature Pulse Rate 120 H 119 H 120 H Respiratory Rate 24 24 24 Blood Pressure 106/59 L 103/59 L 95/49 L Pulse Oximetry 98 95 98 Pulse Oximetry [Exertion on Room Air] Pulse Oximetry [Resting on Room Air] Pulse Oximetry [Resting with Oxygen] 04/08/18 19:15 04/08/18 19:30 04/08/18 19:45 Temperature Pulse Rate 110 H 108 H 107 H Respiratory Rate 24 24 24 Blood Pressure 90/40 L 82/32 L 121/60 Pulse Oximetry 99 98 98 Pulse Oximetry [Exertion on Room Air] Pulse Oximetry [Resting on Room Air] Pulse Oximetry [Resting with Oxygen] 04/08/18 19:50 04/08/18 20:00 04/08/18 21:00 Temperature Pulse Rate 109 H Respiratory Rate Blood Pressure Pulse Oximetry 98 96 Pulse Oximetry [Exertion on Room Air] Pulse Oximetry [Resting on Room Air] Pulse Oximetry [Resting with Oxygen] 04/08/18 22:00 04/08/18 23:00 04/08/18 23:25 Temperature Pulse Rate 108 H 96 H Respiratory Rate Blood Pressure Pulse Oximetry 99 Pulse Oximetry [Exertion on Room Air] Pulse Oximetry [Resting on Room Air] Pulse Oximetry [Resting with Oxygen] 04/09/18 00:00 04/09/18 01:00 04/09/18 02:00 Temperature 97.5 F L Pulse Rate 103 H 80 88 Respiratory Rate 20 Blood Pressure 100/51 L Pulse Oximetry 96 Pulse Oximetry [Exertion on Room Air] Pulse Oximetry [Resting on Room Air] Pulse Oximetry [Resting with Oxygen] 04/09/18 03:00 04/09/18 04:00 04/09/18 04:21 Temperature 98.1 F Pulse Rate 90 99 H Respiratory Rate 20 Blood Pressure 142/73 H Pulse Oximetry 95 96 Pulse Oximetry [Exertion on Room Air] Pulse Oximetry [Resting on Room Air] Pulse Oximetry [Resting with Oxygen] 04/09/18 05:00 04/09/18 06:00 04/09/18 07:00 Temperature Pulse Rate 82 74 101 H Respiratory Rate Blood Pressure Pulse Oximetry Pulse Oximetry [Exertion on Room Air] Pulse Oximetry [Resting on Room Air] Pulse Oximetry [Resting with Oxygen] 04/09/18 07:47 04/09/18 08:00 04/09/18 09:00 Temperature 98.6 F Pulse Rate 91 H 88 88 Respiratory Rate 18 Blood Pressure 141/55 H Pulse Oximetry 97 88 L Pulse Oximetry [Exertion on Room Air] Pulse Oximetry [Resting on Room Air] Pulse Oximetry [Resting with Oxygen] 04/09/18 10:00 04/09/18 10:39 04/09/18 11:00 Temperature Pulse Rate 88 77 Respiratory Rate Blood Pressure Pulse Oximetry 97 Pulse Oximetry [Exertion on Room Air] Pulse Oximetry [Resting on Room Air] Pulse Oximetry [Resting with Oxygen] 04/09/18 11:27 04/09/18 12:00 04/09/18 13:00 Temperature 98.8 F Pulse Rate 91 H 86 84 Respiratory Rate 18 Blood Pressure 134/62 Pulse Oximetry 93 L Pulse Oximetry [Exertion on Room Air] Pulse Oximetry [Resting on Room Air] Pulse Oximetry [Resting with Oxygen] 04/09/18 14:00 04/09/18 15:06 04/09/18 15:25 Temperature 98.4 F Pulse Rate 78 81 Respiratory Rate 18 Blood Pressure 133/60 Pulse Oximetry 92 L 93 L Pulse Oximetry [Exertion on Room Air] Pulse Oximetry [Resting on Room Air] Pulse Oximetry [Resting with Oxygen] 04/09/18 16:24 Temperature Pulse Rate Respiratory Rate Blood Pressure Pulse Oximetry Pulse Oximetry [Exertion on Room Air] 85 L Pulse Oximetry [Resting on Room Air] 92 L Pulse Oximetry [Resting with Oxygen] 94 L Intake & Output 04/08/18 04/09/18 04/09/18 18:59 06:59 18:59 Intake Total 395 / 395 720 / 720 Output Total 675 / 675 Balance -280 / -280 720 / 720 Intake: IV 155 / 155 Heparin/NS PF Inj 500 ML @ 0 30 / 30 mls/hr .ROUTE .[facility] Rx#: [id number] Cardizem Inj 125 MG In NS Inj 125 / 125 100 ML @ 5 MG/HR 5 mls/hr IV. CONT TITRATE PRN Rx#:[id number] Oral 240 / 240 720 / 720 Output: Urine 675 / 675 Other: # Voids 1 Date of Last Bowel Movement 04/07/18 04/07/18 04/08/18 Narrative: awake and alert, interactive and pleasant anicteric neck supple lungs- no rales, decreased breath sounds, no wheezes regular rhythm abdomen- flabby soft, nontender extremiteis no edema neuro exam- non focal Results Procedures completed during hospitalization: 04/08-BETINA with cardiac ablation Labs on day of discharge: Labs from last 24 hours 04/09/18 04/08/18 06:12 18:50 PT 10.7 INR 1.1 APTT 29.3 Puncture Site Not Reportable Patient Temperature 98.6 O2 Saturation 88 L* ABG pH 7.28 L* ABG pCO2 59 H ABG pO2 70 ABG HCO3 27 H ABG O2 Content 21.9 H ABG Base Excess 0.6 ABG Methemoglobin 1.8 Hemoglobin 17.8 H Carboxyhemoglobin 1.3 O2 Delivery Device Ventilator Inspired O2 40 Critical Value Yes - Impressions ITS Impressions Chest X-Ray 04/05/18 00:00 CONCLUSION: Lingular atelectasis versus scarring. Discharge Plan - Discharge Disposition Patient Disposition: ACLF/[facility] - Discharge Condition Condition: Stable - Discharge Order Discharge Orders: Discharge Order (Routine); Ordered 04/09/18 Ordered By: Sonia Mcintosh - Discharge Details Anticipated Discharge Date: 04/09/18 - Physicians Team Primary Care Provider: Primary Care Madison Hernandez Attending Provider: Sonia Mcintosh Other Providers: Sly Felix DO ; Jermaine Bardales MD ; Jose Armando Liang MD
--- NOTE | 2018-04-09 17:35 | P.PNCA ---
Subjective Interval history: No events overnight Did well with ablation In sinus rhythm Physical Exam Vital signs: Vital Signs 04/08/18 18:06 04/08/18 18:15 04/08/18 18:30 Temperature 98.7 F Pulse Rate 120 H 127 H 120 H Respiratory Rate 15 24 24 Blood Pressure 120/58 L 158/81 H 106/59 L Pulse Oximetry 95 98 98 Pulse Oximetry [Exertion on Room Air] Pulse Oximetry [Resting on Room Air] Pulse Oximetry [Resting with Oxygen] 04/08/18 18:45 04/08/18 19:00 04/08/18 19:15 Temperature Pulse Rate 119 H 120 H 110 H Respiratory Rate 24 24 24 Blood Pressure 103/59 L 95/49 L 90/40 L Pulse Oximetry 95 98 99 Pulse Oximetry [Exertion on Room Air] Pulse Oximetry [Resting on Room Air] Pulse Oximetry [Resting with Oxygen] 04/08/18 19:30 04/08/18 19:45 04/08/18 19:50 Temperature Pulse Rate 108 H 107 H Respiratory Rate 24 24 Blood Pressure 82/32 L 121/60 Pulse Oximetry 98 98 98 Pulse Oximetry [Exertion on Room Air] Pulse Oximetry [Resting on Room Air] Pulse Oximetry [Resting with Oxygen] 04/08/18 20:00 04/08/18 21:00 04/08/18 22:00 Temperature Pulse Rate 109 H 108 H Respiratory Rate Blood Pressure Pulse Oximetry 96 Pulse Oximetry [Exertion on Room Air] Pulse Oximetry [Resting on Room Air] Pulse Oximetry [Resting with Oxygen] 04/08/18 23:00 04/08/18 23:25 04/09/18 00:00 Temperature 97.5 F L Pulse Rate 96 H 103 H Respiratory Rate 20 Blood Pressure 100/51 L Pulse Oximetry 99 96 Pulse Oximetry [Exertion on Room Air] Pulse Oximetry [Resting on Room Air] Pulse Oximetry [Resting with Oxygen] 04/09/18 01:00 04/09/18 02:00 04/09/18 03:00 Temperature Pulse Rate 80 88 90 Respiratory Rate Blood Pressure Pulse Oximetry Pulse Oximetry [Exertion on Room Air] Pulse Oximetry [Resting on Room Air] Pulse Oximetry [Resting with Oxygen] 04/09/18 04:00 04/09/18 04:21 04/09/18 05:00 Temperature 98.1 F Pulse Rate 99 H 82 Respiratory Rate 20 Blood Pressure 142/73 H Pulse Oximetry 95 96 Pulse Oximetry [Exertion on Room Air] Pulse Oximetry [Resting on Room Air] Pulse Oximetry [Resting with Oxygen] 04/09/18 06:00 04/09/18 07:00 04/09/18 07:47 Temperature 98.6 F Pulse Rate 74 101 H 91 H Respiratory Rate 18 Blood Pressure 141/55 H Pulse Oximetry 97 Pulse Oximetry [Exertion on Room Air] Pulse Oximetry [Resting on Room Air] Pulse Oximetry [Resting with Oxygen] 04/09/18 08:00 04/09/18 09:00 04/09/18 10:00 Temperature Pulse Rate 88 88 88 Respiratory Rate Blood Pressure Pulse Oximetry 88 L Pulse Oximetry [Exertion on Room Air] Pulse Oximetry [Resting on Room Air] Pulse Oximetry [Resting with Oxygen] 04/09/18 10:39 04/09/18 11:00 04/09/18 11:27 Temperature 98.8 F Pulse Rate 77 91 H Respiratory Rate 18 Blood Pressure 134/62 Pulse Oximetry 97 93 L Pulse Oximetry [Exertion on Room Air] Pulse Oximetry [Resting on Room Air] Pulse Oximetry [Resting with Oxygen] 04/09/18 12:00 04/09/18 13:00 04/09/18 14:00 Temperature Pulse Rate 86 84 78 Respiratory Rate Blood Pressure Pulse Oximetry Pulse Oximetry [Exertion on Room Air] Pulse Oximetry [Resting on Room Air] Pulse Oximetry [Resting with Oxygen] 04/09/18 15:06 04/09/18 15:25 04/09/18 16:24 Temperature 98.4 F Pulse Rate 81 Respiratory Rate 18 Blood Pressure 133/60 Pulse Oximetry 92 L 93 L Pulse Oximetry [Exertion on Room Air] 85 L Pulse Oximetry [Resting on Room Air] 92 L Pulse Oximetry [Resting with Oxygen] 94 L Intake & Output 04/08/18 04/09/18 04/09/18 18:59 06:59 18:59 Intake Total 395 / 395 720 / 720 Output Total 675 / 675 Balance -280 / -280 720 / 720 Intake: IV 155 / 155 Heparin/NS PF Inj 500 ML @ 0 30 / 30 mls/hr .ROUTE .[facility] Rx#: [id number] Cardizem Inj 125 MG In NS Inj 125 / 125 100 ML @ 5 MG/HR 5 mls/hr IV. CONT TITRATE PRN Rx#:[id number] Oral 240 / 240 720 / 720 Output: Urine 675 / 675 Other: # Voids 1 Date of Last Bowel Movement 04/07/18 04/07/18 04/08/18 Narrative: awake and alert, interactive and pleasant anicteric neck supple lungs- no rales, decreased breath sounds, no wheezes regular rhythm abdomen- flabby soft, nontender extremiteis no edema neuro exam- non focal Assessment and Plan - Assessment (1) Atrial flutter with rapid ventricular response Code(s): I48.92 - Unspecified atrial flutter Status: Acute (2) TBI (traumatic brain injury) Code(s): S06.9X9A - Unspecified intracranial injury with loss of consciousness of unspecified duration, initial encounter Status: Acute - Plan 1) Aflutter s/p ablation In sinus rhythm Con't anticoagulation Discharge planning 2) Cespedes Act 3) EF 65%
[2018-04-09 17:40] VITALS: O2SAT 94
--- NOTE | 2018-04-09 18:08 | P.PNPSY ---
Subjective Remarks: The patient was seen today for psychiatric reevaluation. Patient was calm, cooperative, very pleasant. The patient recognized me from our previous encounter, he reports that he feels much better, he says that he is ready to go back home. He reports good mood, denies depression, denies visual and auditory hallucinations, denies suicidal and homicidal ideations. The patient is logical , he is coherent and relevant. He has been compliant his medications, no significant side effects. Completely oriented 3. He had demonstrated good behavior after his ablation. Mental Status Examination Appearance: Appropriate Consciousness: Alert Orientation: x4 Motor Activity: Normal gait Speech: Pressured, Rapid, Stuttering Language: Perseveration Fund of Knowledge: Poor Attention and Concentration: Easily distracted Memory: Impaired Mood: Appropriate Affect: Irritable Thought Process & Associations: Intact Thought Content: Appropriate, Obsessions Hallucination Type: None Delusion Type: None Suicidal Ideation: No Suicidal Plan: No Suicidal Intention: No Homicidal Ideation: No Homicidal Plan: No Homicidal Intention: No Insight: Fair Judgment: Impulsive Assessment and Plan - Assessment (1) TBI (traumatic brain injury) Code(s): S06.9X9A - Unspecified intracranial injury with loss of consciousness of unspecified duration, initial encounter Status: Acute (2) Poor impulse control Code(s): R45.87 - Impulsiveness Status: Acute (3) Poor impulse control Code(s): R45.87 - Impulsiveness Status: Acute (4) Poor impulse control Code(s): R45.87 - Impulsiveness Status: Acute - Plan Plan: The patient was seen today for psychiatric reevaluation. Patient is in a good spirits, does not show any evidence of depression, anxiety, marek or psychosis. He demonstrates good behavior. continue current psychotropic regimen. The patient is psychiatrically cleared to be discharged. CEINT act Justification for Continued Inpatient Stay: Lift bucio act Request Healthcare Surrogate/Guardian Advocate?: Yes
[2018-04-09 18:19] VITALS: PULSE 74
--- NOTE | 2018-04-09 23:49 | ECG ---
Date Performed: 04/09/2018 Time Performed: 08:10:24 PTAGE: 52 years EKG: Sinus rhythm Possible anterior infarct - age undetermined Lateral T wave changes are nonspecific Abnormal ECG PREVIOUS TRACING : 04/05/2018 07.21 Compared to previous tracing, previously Aflutter DOCTOR: Sly Felix Interpretating Date/Time 04/09/2018 23:48:47
== END 2018-04-10 00:36 ==
LOC: NEPD 22:48 → NEDA 04-05 10:22 → HCIS 04-05 12:03 → HCPC 04-08 20:22
PROVIDERS: ADMIT Internal Medicine; ATTEND Internal Medicine